=== PATIENT | female | born 2005 | race Caucasian/White ===

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

== ENCOUNTER 2024-04-12 20:02 | Emergency (ER) | payer MEDICAID, SELFPAY ==
[2024-04-12 20:03] VITALS: BP 142/96; PULSE 107; RESP 19; TEMP 36.6; O2SAT 99; BMI 23.1
[2024-04-12 20:48] LABS: Absolute Lymphocyte Count 1.68 X10^3/uL (0.83-4.51); Absolute Neutrophil Count 4.5 X10^3/uL (2.0-7.7); Basophil# 0.03 X10^3/uL; Basophil% 0.4 % (0-1); Eosinophil# 0.04 X10^3/uL; Eosinophils% 0.6 % (0-5); Hematocrit 40.9 % (37-47); Hemoglobin 14.2 g/dL (12.0-15.0); Lymphocyte # 1.68 X10^3/ul (0.83-4.51); Mean Corp Hgb Conc 34.7 g/dL (32-36); Mean Corpuscular Hgb 30.4 pg (27.0-32.0); Mean Corpuscular Volume 87.6 fL (81-99); Mean Platelet Vol. 11.4 fl (6.2-12.0); Monocyte# 0.45 X10^3/uL; Monocyte% 6.7 % (0-10); NRBC Flagged by Analyzer 0 % (0-5); Neutrophil # 4.52 X10^3/uL (2.7-7.7); Neutrophil % 67.2 % (47-70); Platelet Count 203 K/mm3 (150-450); RBC Distribution Width CV 11.8 % (11.6-14.6); RBC Distribution Width SD 37.6 fl (35.1-43.9); Red Blood Count 4.67 M/mm3 (4.2-5.4); White Blood Count 6.7 K/mm3 (4.4-11.0)
[2024-04-12 21:00] VITALS: BP 117/84; PULSE 81; RESP 18
[2024-04-12] MEDS: Activated Charcoal 50 GM/240 ML BOT PO (21:07)
[2024-04-12 21:14] LABS: Internal QC Validated? YES +Cl - CLEAR BKGD; Pregnancy, Serum, hCG Quali. NEGATIVE Negative; Record Kit Lot#, Serum Preg. 869294
[2024-04-12 21:20] LABS: Anion Gap 7 (5-15); BUN 6 mg/dL (7-18); BUN/Creat Ratio 8.2 RATIO (10-20); Calcium,Total 9.1 mg/dL (8.5-10.1); Chloride 109 mmol/L (98-107); Creatinine, Serum 0.74 mg/dL (0.55-1.02); EST Glomerular Filtration Rate 108 mL/min (>60); Est Glom Filt Rate - Afr Amer 130 mL/min (>60); Estimated Creatinine Clearance 87.83 ml/min; Glucose 99 mg/dL (74-106); Potassium 3.3 mmol/L (3.5-5.1); Sodium Level 140 mmol/L (136-145)
[2024-04-12 21:24] LABS: AST(SGOT) 15 U/L (15-37); Alanine Aminotransfer ALT/SGPT 22 U/L (13-56); Albumin, Serum 4.4 g/dL (3.2-5.0); Alkaline Phosphatase 74 U/L (45-117); Bilirubin, Direct 0.17 mg/dL (0.00-0.30); Globulin 3.2 g/dL (2.2-4.2); Protein, Total 7.6 g/dL (6.4-8.2)
[2024-04-12 21:28] LABS: Alcohol, Blood (Medical)-Serum < 3.0 mg/dL; Salicylate < 1.7 mg/dL (2.8-20.0)
[2024-04-12 21:50] LABS: Amphetamine Urine VISTA NEGATIVE (<1000 ng/mL); Barbiturate Urine VISTA NEGATIVE (< 200 ng/mL); Benzodiazepine Urine VISTA NEGATIVE (< 200 ng/mL); Cocaine Urine VISTA NEGATIVE (< 300 ng/mL); Ecstacy Urine VISTA NEGATIVE (< 500 ng/mL); Methadone Urine VISTA NEGATIVE (< 300 ng/mL); PCP Urine VISTA NEGATIVE (< 25 ng/mL); THC Urine VISTA POSITIVE (< 50 ng/mL); Vista UDS pH Range 6
[2024-04-12 22:00] VITALS: BP 103/67; PULSE 77; RESP 27
[2024-04-12 23:00] VITALS: BP 109/73; PULSE 89; RESP 20
--- NOTE | 2024-04-12 23:57 | EX.ED.DYSGE1 ---
HPI History of Present Illness Chief Complaint: Suicidal Narrative Narrative: Patient is a 18-year-old female with past medical history of anxiety, depression, borderline personality disorder, PTSD who presents to the emergency department chief complaint of suicide attempt. Patient states that she attempted to kill her self today and by taking a large amount of Tylenol. States that she does not know exactly how much Tylenol she took she noted that she took about a half a bottle of 500 mg Tylenol tablets. She states that she has not been on her antidepressants or her anxiety medication for some time now. She states that she was doing well earlier today and then she states that this evening she became severely depressed. Patient denies taking any other medications or anything else to hurt herself. Patient states that she has been hospitalized in the past. States that she has tried to commit suicide in the past by overdosing and several other methods. [facility] Medical History Trauma Headache Non-smoker Depression Anxiety Allergy/AdvReac Type Severity Reaction Status Date / Time No Known Allergies Allergy Verified 04/12/24 20:24 Social History Smoking Status: Current every day smoker tobacco type: cigarettes and e-cigarettes ROS ROS ED ROS Narrative Constitutional: Denies any fevers, chills, headaches, lightness, dizziness Eyes: Denies change in vision double vision blurry vision Cardiovascular: Denies chest pain or palpitations Respiratory: Denies coughing wheezing shortness of breath Abdomen: Denies abdominal pain nausea vomit diarrhea : Denies any urinary symptoms Neurological: Denies numbness, weakness, tingling Musculoskeletal: Denies back pain Skin: Denies rashes or lesions EXAM Physical Exam Narrative Exam Narrative: General: Patient lying in bed rest comfortably did not appear to be in acute distress Head: Atraumatic, normocephalic Eyes: PERRL bilateral, EOMI bilateral no conjunctival injection noted Neck: Soft, supple, trachea midline Cardiovascular: Regular rate and rhythm no murmurs gallops rubs noted Respiratory: Clear to auscultation bilaterally no rales rhonchi or wheeze noted Abdomen: No tenderness palpation, soft, nondistended Extremities: +5/5 strength noted in the bilateral lower extremities, no pedal edema on exam, radial pulses +2/4 in the bilateral per extremities Neurological: Patient following commands knew that she was at [facility] the year is 2023 Psychiatric: Patient is calm cooperative Skin: Warm, dry, intact Const Vital Signs: 04/12/24 20:03 04/12/24 21:00 04/12/24 22:00 Temperature 97.8 F Temperature Source Temporal Pulse Rate 107 H 81 77 Respiratory Rate 19 H 18 27 H Blood Pressure 142/96 H 117/84 H 103/67 Blood Pressure Mean 111 94 78 Pulse Ox 99 Oxygen Delivery Method Room Air 04/12/24 23:00 04/13/24 00:00 Temperature Temperature Source Pulse Rate 89 80 Respiratory Rate 20 H 14 Blood Pressure 109/73 108/65 Blood Pressure Mean 84 79 Pulse Ox Oxygen Delivery Method MDM MDM MDM Narrative Medical decision making narrative: Patient is a 18-year-old female who presents to the emergency department with a chief complaint of suicide attempt by overdosing on Tylenol. Patient states that she ingested this medication around 7 PM this evening. Patient did bring the bottle with her and the bottle showed there was 50 coated tablets however they noted that this was about half full so roughly around 25 tablets in total. I did reach out to poison control and they recommended giving activated charcoal as they are now recommending with some medications out to 4 hours which was ordered. They are recommending getting a level now and if it is greater than 300-400 to start N-acetylcysteine if it is mildly elevated or normal obtain a 4-hour level and then reevaluate the patient. The patient's CBC was reviewed and was largely unremarkable no evidence leukocytosis white blood count normal at 6.7, hemoglobin stable 14.2, platelet count normal at 203. Patient sodium normal 140, potassium normal 3.3, creatinine was normal at 0.74. Patient's AST and ALT are 15 and 22 respectively, test was negative. Patient's salicylate level was less than 1.7, drug screen was negative outside of cannabis and alcohol level less than 3. Patient's Tylenol level was noted be 59. Repeat Tylenol level will be obtained at 2300. Patient's repeat Tylenol still pending this will be signed out to oncoming provider to complete medical clearance prior to crisis evaluation for placement. [place] slip was placed on chart. Lab Data Labs: Laboratory Results - last 24 hr 04/12/24 20:37 WBC 6.7 RBC 4.67 Hgb 14.2 Hct 40.9 MCV 87.6 MCH 30.4 MCHC 34.7 RDW Std Deviation 37.6 RDW Coeff of Pita 11.8 Plt Count 203 MPV 11.4 Immature Gran % (Auto) 0.100 Neut % (Auto) 67.2 Lymph % (Auto) 25.0 [place] % (Auto) 6.7 Eos % (Auto) 0.6 Baso % (Auto) 0.4 Absolute Neuts (auto) 4.5 Absolute Lymphs (auto) 1.68 Nucleated RBC % 0 Sodium 140 Potassium 3.3 L Chloride 109 H Carbon Dioxide 25.0 Anion Gap 7 BUN 6 L Creatinine 0.74 Estim Creat Clear Calc 87.83 Est GFR (MDRD) Af Amer 130 Est GFR (MDRD) Non-Af 108 BUN/Creatinine Ratio 8.2 L Glucose 99 Calcium 9.1 Total Bilirubin 0.50 Direct Bilirubin 0.17 AST 15 ALT 22 Alkaline Phosphatase 74 Total Protein 7.6 Albumin 4.4 Globulin 3.2 Serum , Qual NEGATIVE Salicylates < 1.7 L Urine Opiates Screen NEGATIVE Urine Methadone Screen NEGATIVE Acetaminophen 59.0 H* Ur Barbiturates Screen NEGATIVE Ur Phencyclidine Scrn NEGATIVE Ur Amphetamines Screen NEGATIVE MDMA (Ecstasy) Screen NEGATIVE U Benzodiazepines Scrn NEGATIVE Urine Cocaine Screen NEGATIVE U Cannabinoids Screen POSITIVE H Ur Drug Screen Comment Ethyl Alcohol < 3.0 Discharge Plan Triage Chief Complaint: Suicidal Other Complaint: Overdose ED Provider: Khari Saldaña Dx/Rx/DC Orders Primary Care Provider: Rebeca Tenorio Referrals: Rebeca Tenorio, ASSISTED LIVING ADMINISTRATOR-C [Primary Care Provider] - Print Language: Lithuanian
[2024-04-13] VITALS (7 sets, daily range): BP systolic 100–109; BP diastolic 56–84; PULSE 65–93; RESP 14–30; TEMP 36.6; O2SAT 95–99
[2024-04-13 00:42] LABS: Acetaminophen (Tylenol) Level 41.4 ug/mL (10.0-30.0)
--- NOTE | 2024-04-13 02:36 | ED.RN ---
crisis at bedside reviewing safety plan. Patient to be discharged with boyfriend.
== END 2024-04-13 03:16 | disposition home or self-care (01) ==
PROVIDERS: Emergency Provider Emergency Medicine; PCP Nurse Practitioner Family; Visit Provider Emergency Medicine
DX: T39.1X2A Poisoning by 4-Aminophenol derivatives, intentional self-harm, initial encounter (principal); F60.3 Borderline personality disorder; F41.9 Anxiety disorder, unspecified; F32.A Depression, unspecified; F43.10 Post-traumatic stress disorder, unspecified; F17.210 Nicotine dependence, cigarettes, uncomplicated; F17.290 Nicotine dependence, other tobacco product, uncomplicated; Z91.51 Personal history of suicidal behavior; Z79.899 Other long term (current) drug therapy
CPT/HCPCS: 36415; 80048; 80076; 80143; 80179; 80307; 82077; 84703; 85025; 99285

== ENCOUNTER 2024-07-29 13:24 | Day surgery (SDC) | payer MEDICAID, SELFPAY ==
--- NOTE | 2024-07-28 19:55 | HP.PCM_ITS ---
History and Physical Date of Admission: 07/29/24 OBSTETRICS HISTORY AND PHYSICAL NAME: Ivelisse Lyn SERVICE DATE: July 28, 2024 CHIEF COMPLAINT: retained POC HISTORY OF THE PRESENT ILLNESS: This 18 year old G 2 P 1 SAB at about 12 weeks around 07/08. Passed fetus and placenta at home. At follow up visit 3 weeks later she is still spotting. HCG is positive at 99 and there is possible POC on POCUS PROBLEM LIST Active Problems: * No active hospital problems. * Resolved Problems: * No resolved hospital problems. * HISTORY REVIEW PAST MEDICAL HISTORY PAST MEDICAL HISTORY Diagnosis Date ? Anemia during in third trimester 09/30/2022 ? Anxiety ? Cholestasis during in third trimester 11/17/2022 ? Depression ? History of cardiac monitoring 12/08/2023 Patient with event monitor secondary to passing out syncope. Underlying sinus rhythm with excellent heart rate variability. Heart rate ranging 50-158, average heart rate 82. No evidence atrial fibrillation, no ectopic beats appreciated. Multiple arrhythmias noted with no correlation with any monitor abnormalities. This is a normal monitor. ? History of echocardiogram 09/24/2023 EF 59% Normal scan ? Marijuana abuse ? Vapes nicotine containing substance PAST SURGICAL HISTORY PAST SURGICAL HISTORY Procedure Laterality Date ? NEXPLANON REMOVAL Left 03/09/2024 FAMILY HISTORY FAMILY HISTORY Problem Relation Age of Onset ? No Known Problems Mother ? other (AHUS) Father ? Kidney Disease Father atypical hemolytic uremic syndrome ? No Known Problems Sister ? COPD Maternal Grandmother ? Heart Attack Maternal Grandmother ? Stroke Maternal Grandmother ? Prostate Cancer Maternal Grandfather ? Emphysema Maternal Grandfather ? No Known Problems Paternal Grandmother ? No Known Problems Paternal Grandfather ? No Known Problems Half-sister ? No Known Problems Half-sister SOCIAL HISTORY Social History Tobacco Use ? Smoking status: Never ? Smokeless tobacco: Never Vaping Use ? Vaping status: current everyday user ? Substances: Nicotine, THC, CBD, Flavoring ? Devices: Disposable, Pre-filled or refillable cartridge, Pre-filled pod Substance Use Topics ? Alcohol use: Never ? Drug use: Yes Types: Marijuana Comment: Vapes THC and nicotine. OB History Gravida2 Para1 Term1 Preterm0 AB0 Living1 SAB0 IAB0 Ectopic0 Multiple0 Live Births1 ALLERGIES: ALLERGIES ALLERGIES No Known Allergies MEDICATIONS Current Outpatient Medications on File Prior to Visit Medication Sig ? venlafaxine ER (EFFEXOR XR) 75 mg 24 hr capsule Take 1 capsule by mouth once daily. ? ondansetron orally disintegrating (ZOFRAN ODT) 4 mg disintegrating tablet Take 1 tablet by mouth every 8 hours as needed for nausea/vomiting. (Patient not taking: Reported on 07/25/2024) ? aspirin, enteric coated (ECOTRIN LOW STRENGTH) 81 mg EC tablet Take 1 tablet by mouth once daily. (Patient not taking: Reported on 07/25/2024) ? Thyqikoo-Bv-Qaw-Fe-FA tab Take 1 tablet by mouth once daily. (Patient not taking: Reported on 07/25/2024) No current facility-administered medications on file prior to visit. REVIEW OF SYSTEMS GENERAL: No weight loss, malaise or fevers. RESPIRATORY: Negative for cough, hemoptysis, wheezing, COPD, dyspnea or shortness of breath JET AIRCRAFT SERVICER: SEE HPI PSYCH: Negative for sleep disturbance, mood disorder and recent psychosocial stressors. NEURO: No history of headaches, syncope, paralysis, seizures or tremors The remainder of the review of systems is negative. PHYSICAL EXAM AVSS General: WD, WN HEENT: NC/AT, sclera white, pupils equal, no thyromegaly Lungs: normal respiratory effort Heart: RR Abdomen: soft, nontender Uterus: soft, NT Extremities: no edema POCUS: possible clot vs retained POC RH: Positive ASSESSMENT 18 year old SAB PLAN D&C for retained POC SIGNATURE: Penny Dee DATE: July 28, 2024 TIME: 11:49 AM Assessment & Plan Assessment/Plan (1) Incomplete : PLAN: Plan D&C for retained POC
[2024-07-29] VITALS (8 sets, daily range): BP systolic 90–103; BP diastolic 53–76; PULSE 55–78; RESP 14–16; TEMP 36.4–36.8; O2SAT 98–100; BMI 21.1
--- NOTE | 2024-07-29 13:33 | PCM.PRE.AN2 ---
ASA Classification* ASA Classification ASA Classification: 2 Assessment & Plan Anesthesia* Anesthesia Assessment Anesthesia Assessment: Discussed sedation and/or anesthesia options, risks, benefits, and alternatives with patient/parents/legal guardian/POA. Questions invited. The patient/parents/legal guardian/POA seems to understand and agrees to proceed with anesthesia plan. Reviewed the physical assessment, medical history, allergy history and patient home medications list prior to surgery/procedure/anesthetic and documented any changes. Performed airway and anesthesia risk assessments. Anesthesia Type Anesthesia Type: MAC Anesthesia Focused Assessment* Airway Assessment Mouth opens: >3 cm Mallampati Score: II Focused Labs Anesthesia Preop lab: CBC WBC 6.7 K/mm3 (4.4-11.0) 04/12/24 20:37 04/12/24 RBC 4.67 M/mm3 (4.2-5.4) 04/12/24 20:37 04/12/24 Hgb 14.2 g/dL (12.0-15.0) 04/12/24 20:37 04/12/24 Hct 40.9 % (37-47) 04/12/24 20:37 04/12/24 Plt Count 203 K/mm3 (150-450) 04/12/24 20:37 04/12/24 CHEMISTRY Potassium 3.3 mmol/L (3.5-5.1) L 04/12/24 20:37 04/12/24 Sodium 140 mmol/L (136-145) 04/12/24 20:37 04/12/24 BUN 6 mg/dL (7-18) L 04/12/24 20:37 04/12/24 Creatinine 0.74 mg/dL (0.55-1.02) 04/12/24 20:37 04/12/24 Glucose 99 mg/dL (74-106) 04/12/24 20:37 04/12/24 COAG Pre-Assessment Diagnosis/Proposed Procedure Planned Operative Procedure(s): suction D&C Anesthesia History Anesthesia History - certified dental assistant: Anesthesia History - certified dental assistant Hx Hospitalization Any Problems With Anesthesia Cholinesterase deficiency You/Your Family Experience fever (hyperthermia) with Relationship Recent Exposure to Contagious Disease Does patient have nerve stimulator Patient instructed to have device shut off --Does patient have Pacemaker or ICD? When Was Last Pacemaker Check QUESTION #4 FULL TEXT: You/Your Family Experience fever (hyperthermia) with Anesthesia Last Oral Intake Last Oral intake: Last Oral Intake NPO since Meds taken in AM with sips of water? Meds patient instructed to take am of surgery PONV PONV - certified dental assistant: PONV - certified dental assistant Female HX of Motion Sickness HX of N/V After Surgery Non-Smoker Duration of Surgery greater than 60 minutes Number of Risk Factors PONV Score Height & Weight Height & Weight: Anesthesia: Height & Weight Height 5 ft 07/28/24 16:35 Weight: 47.174 kg 07/28/24 16:35 Respiratory Assessment Respiratory Assessment - certified dental assistant: Respiratory Tract Infection Hx - certified dental assistant Hx Respiratory Tract Infection STOP Sleep Apnea STOP Sleep Apnea - certified dental assistant: STOP Sleep Apnea - certified dental assistant Hx Hypertension Hx Sleep Apnea CPAP BIPAP Do you snore loudly (louder than talking or can be heard Do you often feel tired/ fatigued/ sleepy during daytime? Has anyone observed you stop breathing during sleep? STOP Results QUESTION #5 FULL TEXT : Do you snore loudly (louder than talking or can be heard through closed doors)? Tobacco Use History Tobacco Use History - certified dental assistant: Tobacco Use History - certified dental assistant Tobacco Use Smoking Status Current every day smoker 04/12/24 20:21 Hx Tobacco Use Yes 11/27/22 20:35 Years Smoking Packs Smoked per Day Smoking Cessation Date was within the last 15 years Hx Smoking Cessation Date Hx Smoking Cessation Counseling Hematologic Medial History Hematologic Hx - certified dental assistant: Hematologic Medical Hx - jordan man Hx of Blood Transfusion Hx of Transfusion in last 3 Months Date of Last Transfusion (if within last 3 months) Ever experience any problems with transfusion(s)? Specify any problems Hx of Preganancy in last 3 Months Nurse Filling Out Transfusion & Questions: Date: Time: Patient unable to answer at this time (ie. confused, unrespo /Reproduction History /Reproductive History - certified dental assistant: /Reproductive Hx- certified dental assistant Hx Now Gestational Age (in weeks): EDC: Hx Hx Para Hx Section SAB No 04/12/24 20:03 PFSH Medical History Trauma Headache Non-smoker Depression Anxiety Allergy/AdvReac Type Severity Reaction Status Date / Time No Known Allergies Allergy Verified 04/12/24 20:24 Social History Smoking Status: Current every day smoker tobacco type: cigarettes and e-cigarettes Review of Systems (Anesthesia) ROS Narrative System reviewed and no additional complaints, except as documented.
[2024-07-29] MEDS: DOXYCYCLINE 100 MG IV (14:04)
[2024-07-29] MEDS: SODIUM CHLORIDE IV (14:04)
[2024-07-29 14:19] LABS: Hematocrit 36.8 % (37-47); Hemoglobin 12.9 g/dL (12.0-15.0); Mean Corp Hgb Conc 35.1 g/dL (32-36); Mean Corpuscular Hgb 31.6 pg (27.0-32.0); Mean Corpuscular Volume 90.2 fL (81-99); Mean Platelet Vol. 11.8 fl (6.2-12.0); Platelet Count 188 K/mm3 (150-450); RBC Distribution Width CV 12.4 % (11.6-14.6); RBC Distribution Width SD 41.1 fl (35.1-43.9); Red Blood Count 4.08 M/mm3 (4.2-5.4); White Blood Count 8.6 K/mm3 (4.4-11.0)
--- NOTE | 2024-07-29 14:58 | PCM.PN.BLA ---
Progress Note Patient seen in pre op. Assessment & Plan Assessment/Plan (1) Retained products of conception: PLAN: Discussed r/b/a suction D&C. Patient desires to proceed. No changes noted to H&P.
--- NOTE | 2024-07-29 15:30 | POC_PTH ---
PATIENT: PAULINA RAMSEY [place] [facility] [place][id number] AGE/SX: 18/F ROOM: RE07/29/[address]: Dr. Pamela Barone DO : 2005 BED: DIS: 07/29/2024 SPEC #: [id number] RECD: 08/01/24 09:14 STATUS: ANAMARIA APURVA #: [id number] ABHIJIT: 07/29/24 15:[address]: Pamela Barone DEPT: SURGICAL PATHOLOGY RECD BY: Hernán Ferreira ENTERED: 08/01/24 09:14 SP TYPE: PROD CONC OTHR DR: Rebeca Tenorio, DOOR CLOSER MECHANIC-C Tissues: Product of conception, NOS Procedures: Surgery Specimen Level IV HEADER OPERATION: Dilation and curettage, suction PRE-OP DIAGNOSIS: Incomplete TISSUE SUBMITTED: Retained products of conception MICROSCOPIC DIAGNOSIS Uterine contents, suction D&C: * Necrotic decidua and chorionic villi consistent with products of conception. * Fragments of endometrium/lower uterine segment. MICROSCOPIC DESCRIPTION Slides are reviewed. GROSS DESCRIPTION The specimen is received in a suction device, in one container labeled with the patient's name and designated Retained products of conception. The specimen consists of multiple fragments of grajeda-lux soft tissue measuring 5 x 3.5 x 1cm in aggregate. No villi or parts are identified. TE4 mr 08/01/2024 CPT: 63390
[2024-07-29] MEDS: Lidocaine 1% /Epi 1:100 (20ml) 20 ML Vial (15:37)
--- NOTE | 2024-07-29 15:54 | PCM.POST.ANE ---
Anesthesia: Postop Eval I Current Vital Signs Temperature: 97.6 F Pulse Rate: 62 Blood Pressure: 95/59 Respiratory Rate: 16 Pulse Ox: 98 Oxygen Delivery Method: Room Air Assessment Airway patent: Yes Spontaneous unlabored respirations: Yes Mental status: Asleep nausea: No Vomiting: No Anesthesia Complication: No Fluid Hydration Crystalloid volume administer (ml): 10 Total IV fluid infused: 10 Progress Note Anesthesia document: Postop Eval 1 completed: Yes
--- NOTE | 2024-07-29 15:56 | PCM.DC ---
Discharge Instructions Diet Discharge Diet: No restrictions DC O2, CPAP, BIPAP needs Home O2 Discharge instructions: No Dressing / Incision Discharge Activity: May Drive (once you are more than 24 hours out from surgery) and May Shower (once you are more than 24 hours out from surgery) May resume sexual activity in: 2 weeks (Nothing in the vagina and no soaking water while you are having vaginal bleeding. ) Weight Bearing Status: Weight bearing as tolerated Lifting Restrictions: none Dressing / Incision Call your doctor if you observe: Fever of 101 or Higher, Coldness, Increased Pain, Numbness or Tingling, Inability to urinate, Inability to have a bowel movement, Using more than 1 pad per hour, Shortness of breath, Dizziness, Swelling in the ankles, Chest pain, Increased palpitations (irregular heartbeat), Calf discomfort and Uncontrolled pain Cleanse incision/area with: Soap & Water Follow Up Care Please Follow Up With: Pamela Barone DO When: 1-2 weeks for follow up Test Results: Test results from this visit will be discussed in further detail at your follow-up appointment, if applicable. Discharge Plan Admission Primary Reason for Your Visit: surgery Attending Provider: Pamela Barone Primary Care Provider: Rebeca Tenorio Instructions Patient Instructions: Dilation and Curettage Print Language: Hungarian Discharge Orders/Prescriptions Prescriptions: Continued venlafaxine 75 mg capsule,extended release 24hr 75 mg PO DAILY Referrals / Follow Up: Rebeca Tenorio, ASSISTANT SUPERINTENDENT FOR [employer]-C [Primary Care Provider] - Disposition Disposition (needs filled in before D/C Order can be placed): Home, Self Care
--- NOTE | 2024-07-29 15:57 | OP.PCM_ITS ---
Problems Associated Problem List Diagnoses (1) Retained products of conception: Operative Report (Standard) Operative Information Date of Procedure: 07/29/24 Pre-Operative Diagnosis: Retained products of conception Post-Operative Diagnosis: As above Surgery/Procedure Performed: Suction D&C neurological physiotherapist: No Type of Anesthesia: MAC RN Documented Start/Stop Times: Operation Date: 07/29/24 15:30 Case Time Into Pre-Op 07/29/24 13:29 Anesthesia Start 07/29/24 15:13 Into Room 07/29/24 15:13 Procedure Start 07/29/24 15:31 Procedure End 07/29/24 15:45 Anesthesia End 07/29/24 15:49 Out of Room 07/29/24 15:49 Into Recovery 07/29/24 15:52 Procedure Start Time: 15:31 Procedure Stop Time: 15:45 Select all DRAINS/GRAFTS/IMPLANTS that apply: None Special Medications: None Estimated Blood Loss: 50 mL Fluids Replaced: See anesthesia record Specimen collected: Yes Description of specimen(s) removed: Retained products of conception Description of surgery: The patient was taken to the operating room where MAC anesthesia was found to be adequate. She was prepped and draped in the dorsal lithotomy position using yellowfin stirrups. A weighted speculum was placed in the vagina to expose the cervix. The anterior lip of the cervix was grasped with a single-tooth tenaculum. The cervix was serially dilated to accommodate a size 8 curved suction curettage. Several passes were made using the size 8 suction curettage to remove retained products of conception, until no further tissue was noted. A sharp curettage was performed along all 4 uterine mendoza for a good uterine cry. A transabdominal ultrasound was performed confirming no further retained products of conception. Bleeding was scant. The single tooth tenaculum and weighted speculum were removed from the vagina. Sponge counts were correct. A vaginal sweep was performed. The patient was taken to the recovery in stable condition. Surgical Findings: Enlarged 8 week sized uterus Complications Complications: No Admit VTE Documentation VTE Present on Admission: No VTE Mechan Device Prophylaxis: SCD's
--- NOTE | 2024-07-29 16:02 | POSTOPAN2_ITS ---
Anesthesia Postop Eval I Sum Postop Eval Completion status Anesthesia document: Postop Eval 1 completed: Yes Anesthesia Postop Eval I Summary Anesthesia Postop Eval I Summary: Anesthesia Postop Eval I: Assessment Summary Airway patent Yes 07/29/24 15:54 VICE PRESIDENT PLANNING.[email or web address] Spontaneous unlabored Yes 07/29/24 15:54 VICE PRESIDENT PLANNING.CHANDNI respirations Mental status Asleep 07/29/24 15:54 VICE PRESIDENT PLANNING.CHANDNI nausea No 07/29/24 15:54 VICE PRESIDENT PLANNING.CHANDNI Vomiting No 07/29/24 15:54 VICE PRESIDENT PLANNING.CHANDNI Anesthesia Postop Eval I: Fluid Summary Crystalloid volume administer 10 07/29/24 15:54 VICE PRESIDENT PLANNING.CHANDNI (ml) Colloids volume administered ( ml) Blood Product volume administered (ml) Total IV fluid infused 10 07/29/24 15:54 VICE PRESIDENT PLANNING.CHANDNI Anesthesia Postop Eval I: Summary Notes Anesthesia Complication No 07/29/24 15:54 MIYA Anesthesia Complication Comment: Post-operative progress note Anesthesia: Postop Eval II Evaluation Mental status: Awake Pain Level: 0 nausea: No Vomiting: No
--- NOTE | 2024-07-29 16:02 | PCM.POSTANE2 ---
Anesthesia Postop Eval I Sum Postop Eval Completion status Anesthesia document: Postop Eval 1 completed: Yes Anesthesia Postop Eval I Summary Anesthesia Postop Eval I Summary: Anesthesia Postop Eval I: Assessment Summary Airway patent Yes 07/29/24 15:54 PRODUCT DESIGNER.[email or web address] Spontaneous unlabored Yes 07/29/24 15:54 PRODUCT [email or web address].[email or web address] respirations Mental status Asleep 07/29/24 15:54 PRODUCT [email or web address].[email or web address] nausea No 07/29/24 15:54 PRODUCT DESIGNER.CHANDNI Vomiting No 07/29/24 15:54 PRODUCT DESIGNER.[email or web address] Anesthesia Postop Eval I: Fluid Summary Crystalloid volume administer 10 07/29/24 15:54 PRODUCT [email or web address].[email or web address] (ml) Colloids volume administered ( ml) Blood Product volume administered (ml) Total IV fluid infused 10 07/29/24 15:54 PRODUCT [email or web address].[email or web address] Anesthesia Postop Eval I: Summary Notes Anesthesia Complication No 07/29/24 15:54 MIYA Anesthesia Complication Comment: Post-operative progress note Anesthesia: Postop Eval II Evaluation Mental status: Awake Pain Level: 0 nausea: No Vomiting: No
--- NOTE | 2024-07-29 17:09 | SUR.PHASEII ---
pt screaming and crying. States she is angry because she did not receive an iud during her procedure today. This Nurse spoke to Dr Barone on the phone regarding issue. Relayed info to patient that Dr Barone was unaware that patient wanted an IUD, it was not on the consent and patient did not say anything about it preop. IUD can be placed in the office per Dr Barone. Patient has calmed down slightly. States she is very angry that the IUD did not happen. Mother in room with patient and attempting to calm her down. pt apologized for her behaviour and states she is just very frustrated.
== END 2024-07-29 17:22 | disposition home or self-care (01) ==
PROVIDERS: PCP Nurse Practitioner Family; Referring Provider Obstetrics & Gynecology; Visit Provider Obstetrics & Gynecology
PROC: (CPT 59812; principal; 2024-07-29 15:15)
DX: O03.4 Incomplete spontaneous abortion without complication (principal); Z79.82 Long term (current) use of aspirin; F17.210 Nicotine dependence, cigarettes, uncomplicated; F17.290 Nicotine dependence, other tobacco product, uncomplicated
CPT/HCPCS: 59812; 01965; 85027; 88305; A4216; J2405

== ENCOUNTER 2024-09-27 12:15 | Emergency (ER) | payer MEDICAID, SELFPAY ==
[2024-09-27 12:18] VITALS: BP 112/85; PULSE 63; RESP 20; TEMP 36.2; O2SAT 100; BMI 20.3
[2024-09-27 12:58] LABS: Absolute Lymphocyte Count 2.86 X10^3/uL (0.83-4.51); Absolute Neutrophil Count 5.3 X10^3/uL (2.0-7.7); Basophil# 0.03 X10^3/uL; Basophil% 0.3 % (0-1); Hematocrit 40.1 % (37-47); Hemoglobin 13.7 g/dL (12.0-15.0); Lymphocyte # 2.86 X10^3/ul (0.83-4.51); Lymphocyte % 32.9 % (19-41); Mean Corp Hgb Conc 34.2 g/dL (32-36); Mean Corpuscular Hgb 31.3 pg (27.0-32.0); Mean Corpuscular Volume 91.6 fL (81-99); Mean Platelet Vol. 11.9 fl (6.2-12.0); Monocyte# 0.52 X10^3/uL; NRBC Flagged by Analyzer 0 % (0-5); Neutrophil # 5.27 X10^3/uL (2.7-7.7); Neutrophil % 60.6 % (47-70); Platelet Count 215 K/mm3 (150-450); RBC Distribution Width CV 11.7 % (11.6-14.6); RBC Distribution Width SD 39.6 fl (35.1-43.9); Red Blood Count 4.38 M/mm3 (4.2-5.4); White Blood Count 8.7 K/mm3 (4.4-11.0)
[2024-09-27 13:16] LABS: Internal QC Validated? YES +Cl - CLEAR BKGD; Pregnancy, Serum, hCG Quali. NEGATIVE Negative
--- NOTE | 2024-09-27 13:16 | EX.ED.DYSGE1 ---
HPI History of Present Illness Chief Complaint: Abd Pain Detail of Chief Complaint: Left lower quadrant inguinal pain with radiation to the anterior posterior Informant: patient Onset/Context/Timing Onset: Days Context: Sudden Onset Timing: Continuous Quality: Pain Location: Previously noted Current Severity: Mild Maximum Severity: Moderate Worsened by: Movement and palpation Relieved by: Nothing Associated Symptoms Associated Symptoms: Vaginal bleeding since D&C June 2024 Narrative Narrative: Patient is a 18-year-old G2, P1 female who presents with left lower quadrant/left inguinal pain that radiates to the left anterior thigh and left posterior thigh. The vaginal bleeding has been present since D&C in June. Patient denies fever, chills night sweats. She denies dysuria, frequency, urgency or hematuria. She denies vaginal discharge. She has no history of endometriosis or ovarian cyst. She is not on any form of control. There is no history of trauma. She has not noted any lesions or rash. She has not had pain like this before. She denies bowel bladder dysfunction. She denies radicular pain. She denies foot drop. [facility] Medical History Wears glasses Marijuana use Low iron Anemia Restless legs Back pain Syncope Smoker Shortness of breath on exertion History of echocardiogram Trauma Headache Depression Anxiety Home Medications ?Medication ?Instructions ?Recorded ?Last Taken ?Type venlafaxine 75 mg capsule,extended 75 mg PO DAILY 07/29/24 07/28/24 History release 24 hr doxycycline monohydrate 100 mg 100 mg PO BID #10 CAPSULES 09/27/24 Unknown Rx capsule naproxen 500 mg tablet 500 mg PO BID #14 tabs 09/27/24 Unknown Rx Allergy/AdvReac Type Severity Reaction Status Date / Time No Known Allergies Allergy Verified 09/27/24 12:18 Social History Smoking Status: Current every day smoker tobacco type: cigarettes and e-cigarettes ROS ROS ED Constitutional Constitutional ED: Denies chills, fever(s), subjective or sweats Cardiovascular Cardiovascular: Denies chest pain or palpitations Respiratory/Chest Respiratory/Chest: Denies cough, dyspnea or dyspnea on exertion Gastrointestinal Gastrointestinal: Reports abdominal pain; Denies constipation, diarrhea, melena, nausea or vomiting Genitourinary Genitourinary ED: Reports LMP (females 10-50) Details: Comment: (Documented HPI narrative); Denies dysuria, hematuria or urinary frequency Musculoskeletal Musculoskeletal: Denies arthralgias, back pain, myalgias or neck pain Integumentary Denies rash Neurologic Neurologic: Denies paresthesias or weakness Hematologic/Lymphatic Hematologic/Lymphatic: Reports systems reviewed and no addt'l complaints, except as documented EXAM Physical Exam Const Vital Signs: 09/27/24 12:18 Temperature 97.1 F L Temperature Source Temporal Pulse Rate 63 Respiratory Rate 20 H Blood Pressure 112/85 H Blood Pressure Mean 94 Pulse Ox 100 Oxygen Delivery Method Room Air Positive well nourished and well developed Constitutional Narrative: Patient is thin. She appears pale. She appears slightly uncomfortable. General Appearance ED: well developed; Negative for pallor HEENT Reports moist mucous membranes HEENT Narrative: Head is atraumatic normocephalic. Ears normal. Nares patent. Eyes PERRL and EOMs intact bilaterally General Eye ED: Negative for scleral icterus Neck no lymphadenopathy, supple and no JVD Resp normal respiratory effort and clear to auscultation bilaterally Cardio regular rate, regular rhythm, S1 normal heart sound, S2 normal heart sound and no murmurs GI non-distended and no masses; Negative for hepatosplenomegaly Inspection: Negative for abdominal distention Auscultation: hypoactive bowel sounds Palpation: soft and tender LLQ; Negative for guarding, splenomegaly, mass or rebound tenderness present Narrative: External genitalia normal. Vaginal mucosa normal. Cervix is normal. There is no discharge or active bleeding at this time. Patient has no discomfort pressure against the bladder. There is no cervical motion tenderness. She has some mild discomfort right and left adnexa. Ovaries were palpated and normal. Uterus may be slightly enlarged. There is evidence of left inguinal lymphadenopathy. She has significant tenderness of the more superior lymph nodes. She did report improvement with Toradol. Will discharge with prescription for NSAID and antibiotics. Back/Spine no CVA tenderness Extremity normal to inspection Neuro oriented x3 and CN's II-XII intact bilaterally Sensorium / Orientation: alert Psych mental status grossly normal Skin no rashes or lesions noted, no wounds and skin turgor normal General Skin Exam: elasticity normal; Negative for jaundice or pallor MDM MDM MDM Narrative Medical decision making narrative: Differential diagnosis would include ovarian cyst, ovarian torsion, ectopic , pelvic pain unknown etiology, endometriosis, urinary tract infection. CBC and test were obtained. CBC is normal. test is negative. With patient and palpable left inguinal nodes that are tender we will treat with doxycycline and NSAIDs. Lab Data Attestation: I reviewed the patient's lab results. Lab results narrative: CBC normal. test negative. Labs: Laboratory Results - last 24 hr 09/27/24 12:40 WBC 8.7 RBC 4.38 Hgb 13.7 Hct 40.1 MCV 91.6 MCH 31.3 MCHC 34.2 RDW Std Deviation 39.6 RDW Coeff of Pita 11.7 Plt Count 215 MPV 11.9 Immature Gran % (Auto) 0.200 Neut % (Auto) 60.6 Lymph % (Auto) 32.9 [place] % (Auto) 6.0 Eos % (Auto) 0.0 Baso % (Auto) 0.3 Absolute Neuts (auto) 5.3 Absolute Lymphs (auto) 2.86 Nucleated RBC % 0 Serum , Qual NEGATIVE Treatment and Re-Evaluation :: Patient and mother were informed of laboratory results and suspected diagnosis in light of pelvic exam. Plan is to discharge to home Discharge Plan Triage Chief Complaint: Abd Pain ED Provider: Morteza Turner Dx/Rx/DC Orders Clinical Impression: Superficial inguinal lymphadenopathy, Abnormal uterine and vaginal bleeding, unspecified Instructions: Lymphadenopathy Prescriptions: New doxycycline monohydrate 100 mg capsule 100 mg PO BID Qty: 10 0RF naproxen 500 mg tablet 500 mg PO BID Qty: 14 0RF No Action venlafaxine 75 mg capsule,extended release 24hr 75 mg PO DAILY Primary Care Provider: Rebeca Tenorio Referrals: Rebeca Tenorio, [employer] [Primary Care Provider] - 3-5 Days if not improving Print Language: Nepali Disposition Disposition: Home, Self Care
[2024-09-27 13:57] VITALS: BP 109/69; PULSE 65; RESP 16; TEMP 36.7; O2SAT 100
== END 2024-09-27 13:58 | disposition home or self-care (01) ==
PROVIDERS: Emergency Provider Emergency Medicine; PCP Nurse Practitioner Family; Visit Provider Emergency Medicine
DX: R59.0 Localized enlarged lymph nodes (principal); N93.9 Abnormal uterine and vaginal bleeding, unspecified; R10.32 Left lower quadrant pain; F41.9 Anxiety disorder, unspecified; F32.A Depression, unspecified; G25.81 Restless legs syndrome; F17.210 Nicotine dependence, cigarettes, uncomplicated; F17.290 Nicotine dependence, other tobacco product, uncomplicated; Z79.899 Other long term (current) drug therapy
CPT/HCPCS: 84703; 85025; 99284; A4216

== ENCOUNTER 2024-11-28 09:51 | Emergency (ER) | payer MEDICAID, SELFPAY ==
[2024-11-28 09:52] VITALS: BP 101/74; PULSE 73; RESP 18; TEMP 36.6; O2SAT 99; BMI 21.7
[2024-11-28] MEDS: 0.9% Normal Saline (1000mL) 1,000 ML 999 ML IV (10:29)
[2024-11-28 10:49] LABS: Hematocrit 41.8 % (37-47); Hemoglobin 13.9 g/dL (12.0-15.0); Immature Granulocytes Count 0.070 X10^3/uL (0.0-0.0); Mean Corp Hgb Conc 33.3 g/dL (32-36); Mean Corpuscular Volume 92.3 fL (81-99); Mean Platelet Vol. 11.7 fl (6.2-12.0); NRBC Flagged by Analyzer 0 % (0-5); Platelet Count 171 K/mm3 (150-450); RBC Distribution Width CV 12.9 % (11.6-14.6); RBC Distribution Width SD 43.6 fl (35.1-43.9); Red Blood Count 4.53 M/mm3 (4.2-5.4); White Blood Count 11.0 K/mm3 (4.4-11.0)
[2024-11-28 11:06] LABS: Color, Urine Yellow (Yellow); Glucose, Dipstick Normal (Normal); Ketone-Dipstick Negative (Negative); Leukocyte Esterase-Dipstick Negative /ul (Negative); Nitrite-Dipstick Negative (Negative); Occult Blood-Urine 10 /ul (Negative); Protein-Dipstick 15 mg/dl (Negative); Specific Gravity, Urine 1.010 (1.002-1.030); Urine Bilirubin Dipstick Negative (Negative)
[2024-11-28 11:32] LABS: Internal QC Validated? YES +Cl - CLEAR BKGD; Pregnancy, Serum, hCG Quali. NEGATIVE Negative; Record Kit Lot#, Serum Preg. 0000947241
[2024-11-28 11:40] LABS: AST(SGOT) 20 U/L (<=31); Alanine Aminotransfer ALT/SGPT 14 U/L (<=34); Albumin, Serum 4.3 g/dL (3.5-5.0); Alkaline Phosphatase 80 U/L (35-104); Anion Gap 9 (5-15); BUN 7 mg/dL (4-19); BUN/Creat Ratio 11.4 RATIO (10-20); Calcium,Total 8.7 mg/dL (7.6-11.0); Carbon Dioxide 24.5 mmol/L (21.0-32.0); Chloride 106 mmol/L (98-108); Estimated Creatinine Clearance 99.17 ml/min (50-250); Globulin 2.5 g/dL (2.2-4.2); Glucose 105 mg/dL (70-99); Lipase 184 U/L (13-75); Potassium 4.1 mmol/L (3.3-5.1)
[2024-11-28 11:51] VITALS: BP 100/77; PULSE 68; RESP 14; O2SAT 99
[2024-11-28] MEDS: Ketorolac 30 MG/ML Syringe IV (12:56)
[2024-11-28 13:00] VITALS: BP 134/78; PULSE 78; RESP 16; O2SAT 98
[2024-11-28 14:01] VITALS: BP 134/78; PULSE 78; RESP 18; TEMP 36.6; O2SAT 99
== END 2024-11-28 14:02 | disposition home or self-care (01) ==
PROVIDERS: Emergency Provider Surgery; PCP Nurse Practitioner Family; Visit Provider Surgery
DX: R10.32 Left lower quadrant pain (principal); R10.2 Pelvic and perineal pain; R14.0 Abdominal distension (gaseous); R11.0 Nausea; F32.A Depression, unspecified; F41.9 Anxiety disorder, unspecified; Z79.3 Long term (current) use of hormonal contraceptives; Z79.899 Other long term (current) drug therapy; F17.290 Nicotine dependence, other tobacco product, uncomplicated
CPT/HCPCS: 74177; 80053; 81002; 83690; 84703; 85025; 96361; 96374; 96375; 99283; Q9967; A4216; J2405

== ENCOUNTER 2025-03-01 08:00 | Outpatient (RCR) | payer MEDICAID, SELFPAY ==
--- NOTE | 2025-03-01 09:10 | BH.COMM ---
Communication Note Communication with Client Communication Note: Met with pt to complete paperwork, update any changes to pre-admission screening, and complete risk assessment. Consulted with Dr. 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
--- NOTE | 2025-03-01 10:15 | BH.SGPN.GN ---
Behaviors/Verbalizations/Mental Status: [] Client alert and oriented, casually dressed and groomed. Eye contact fair. Motor activity appropriate. Speech within normal limits. Affect congruent, mood anxious. Thoughts linear, logical, no signs of hallucinations or delusions. Client Response/Progress/Benefit: [] Pt engaged in session AEB client listening attentively to peers and providing input. Attentive and contributed to discussion as group worked on defining self-forgiveness and identifying mental health benefit. Identified benefits as: reduce guilt/shame, increase self-confidence, decrease negative self-talk, healthier relationships, ect. ?Worked in small groups to identify factors that can make self-forgiveness difficult. Pt stated having a hard time forgiving self for not being a better mom. Pt identified a personal barrier to self-forgiveness. Benefited from increased education on self-forgiveness, benefits, and what effects it. Pt will continue IOP tx to improve distress tolerance, improve confidence, and prevent decompensation.
--- NOTE | 2025-03-01 11:15 | BH.SGPN.GN ---
Behaviors/Verbalizations/Mental Status: [] Client alert and oriented, casually dressed and groomed. Eye contact good. Motor activity appropriate. Speech within normal limits. Affect congruent, mood content, anxious. Thoughts linear, logical, no signs of hallucinations or delusions. Client Response/Progress/Benefit: [] Pt engaged in session AEB client listening attentively to peers and providing input. Attentive during psychoeducation on the 4 R?s of Self-Forgiveness (Responsibility, Remorse, Protestant, Renewal). Contributed to discussion as group worked on identifying strategies for improving ability to practice self-forgiveness. Reports wanting to practice thought challenging and journaling. Engaged in self-forgiveness activity and benefited from increased education on self-forgiveness building skills. Pt will continue IOP tx to improve mood stability, increase self-compassion, and prevent decompensation. Narrative Note: []
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
--- NOTE | 2025-03-03 07:46 | BH.DR.ITP ---
Initial Treatment Plan Patient Information Visit Information: ADMISSION DATE: EXPECTED LOS: 4-6 weeks Problems/Symptoms Problem #1:: OCD Symptom:: intrusion, compulsions in the form of mantras, anxiety Problem #2:: depression Symptom:: Suicidality, low mood, poor motivation
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
[2025-03-03 10:14] VITALS: BP 135/89; PULSE 96
--- NOTE | 2025-03-03 10:15 | BH.SGPN.GN ---
Behaviors/Verbalizations/Mental Status: []Pt alert and oriented, neatly dressed and groomed. Eye contact good. Motor activity appropriate. Speech within normal limits. Affect constricted, mood depressed. Thoughts linear, logical, no signs of hallucinations or delusions. Client Response/Progress/Benefit: [] Pt engaged and actively participating in discussion, taking notes. Pt attentive during psychoeducation about the window of tolerance and noted personal connections. Group identified what contributes to low distress tolerance. The group gained awareness of the three zones of tolerance and pt was able to identify what they look like in each zone. Pt shared personal signs in hyperarousal zone are: racing heart, anger, lashing out, and wanting to leave. Pt shared signs in the window of tolerance, they feel calm, curious, and enjoying hobbies again. Pt appeared to benefit from psychoeducation on distress tolerance and practicing self-reflection. Pt will continue IOP tx to prevent decompensation, gain healthy coping skills, and improve mood stability. Narrative Note: []
--- NOTE | 2025-03-03 11:15 | BH.SGPN.GN ---
Behaviors/Verbalizations/Mental Status: []Pt alert and oriented, casually dressed and groomed. Eye contact good. Motor activity appropriate. Speech within normal limits. Affect congruent, mood depressed. Thoughts linear, logical, no signs of hallucinations or delusions. Client Response/Progress/Benefit: [] Pt responded well to session AEB taking notes and contributing to discussion throughout. Pt engaged as group continued discussion on distress tolerance and the mental health benefits of widening their overall Window of Tolerance. Pt engaged with group in experiential activity provided input on connections between variables in the activity and distress tolerance. Worked within small groups to identify strategies to increase distress tolerance and reduce hyper-arousal and hypo-arousal states. Identified wanting to begin implementing distress tolerance skills of: stretching, deep breathing, and talking to supports. Pt appeared to benefit from gaining insight and learning strategies to increase distress tolerance. Pt will continue IOP tx to promote use of healthy coping skills, improve mood stability, and prevent decompensation. Narrative Note: []
--- NOTE | 2025-03-06 09:00 | BH.SGPN.GN ---
Behaviors/Verbalizations/Mental Status: [] Pt alert and oriented, Casually dressed and groomed. Eye contact fair. Motor activity appropriate. Speech within normal limits. Affect congruent, mood anxious. Thoughts linear, logical, no signs of hallucinations or delusions. Reviewed pt?s symptom tracker, 1/5 with 5 being severe for risk for suicidal ideation, indicates a 0/5 for plan, and intent to kill self. Pt does not appear to be imminent risk to harm self.03/06/25. Client Response/Progress/Benefit: []Pt was an active participant in group discussions. Attentive. Per patients daily symptom tracker, pt indicates a 2/5 for depression and a 3/5 for anxiety, with 5 being severe. Pt shared her mental positive as gradually reducing the use of weed as a coping mechanism. Pt stated that she was feeling like a zombie due to smoking all of the time, and knows that weed is not good for some of her chronic health issues. Pt also reported trying to use other coping mechanisms to deal with stress instead of weed. Pt's stressor was dealing with health issues while trying to be attentive to her two year old daughter, stating that she often felt guilty for having to rest, instead of playing, and pushing her self to the point of having to stay in bed for a few days. She reported that she was overall psychically feeling unwell due to chronic illness. Pt was supportive and attentive to others in the group. Pt seemed to benefit from support from peers. Will continue IOP tx to promote healthy coping mechanisms, reduce negative thinking patterns, and increase self-confidence.
--- NOTE | 2025-03-06 10:15 | BH.SGPN.GN ---
Behaviors/Verbalizations/Mental Status: [] Eye contact is good. Motor activity is appropriate. Appearance is casual. Speech is Appropriate. Mood is content. Affect is congruent. Thoughts are linear and logical. No evidence of psychosis. Client Response/Progress/Benefit: [] Pt engaged in session AEB listening attentively to others and providing input throughout. Pt engaged in activity, able to connect how it can be uncomfortable and difficult to practice acceptance when situations are out of one?s own control. Identified what they are struggling to accept in personal life. Worked with peer group to define acceptance and identify the benefits that acceptance can bring. Benefits included; reduce anxiety, reduced stress, helps one to focus on situations we can change, and decreased negative self-talk. Seemed to benefit from increased awareness of the meaning as well as the importance of acceptance. Will continue in IOP to improve emotion regulation, challenge distortions, and prevent decompensation. Narrative Note: []
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
--- NOTE | 2025-03-06 14:12 | BH.MTP ---
Master Treatment Plan Patient Information Program Physician:: Dr. Javi Day Primary Therapist:: BUCK Correa Psychiatric Diagnoses Psychiatric Diagnoses:: OCD; Major Depressive Disorder Diagnosis Code(s):: F42.0 Estimated LOS Estimated LOS (in weeks):: 8 Problem/Goal #1 Problem/Goal #1 Stated Goal:: Pt will reduce overall frequency and intensity of anxiety and OCD symptoms so that daily functioning is less impaired. Description of Barriers: Pt has a significant trauma history that continues to impact pt's core beliefs and behaviors. Pt is experiencing work, familial, and social stressors due to her symptoms. Pt is unable to manage her intrusive thoughts and feels like they are racing constantly. Pt reported she becomes so overwhelmed by sx she cant leave the house, maintain employment, or do more the ?the bare minimum? when caregiving. Functional Impact: Pt is a 19 year old female who has a history of depression, anxiety, BPD and OCD who was referred to [facility] tx by her boyfriend who found the program online. At the time of her referral pt reports she was experiencing severe depressive sx which she described as ?bed rot?. Pt noted that she was not able to get off the couch, shower, eat, or do more than the bare minimum due to loss of energy and motivation. Does describe this as somewhat better since beginning IOP tx as it gives her a reason to complete personal hygiene tasks. Noted that she was still caring for her 2 year old daughter at that time but felt guilty for only doing the bare minimum in terms of caregiving tasks. Explained that she had her daughter at 17 and has struggle to adjust to motherhood. Worsening sx of depression mood instability, and OCD since giving . Was previously on venlafaxine and olanzapine but ran out of medication and has not taken for the last 2 weeks. Goal Relevant Strengths/Supports: Pt has support from her boyfriend and mother. Pt is engaged and motivated. Objectives Objective #1: Stated Objective: Pt will improve ability to cope with OCD symptoms and reduce avoidance by setting 1-2 small exposure goals each week and reducing engagement in compulsions each week. Interventions: Through group and individual therapy, pt will gain skills on distress tolerance and sitting with the uncomfortable. Therapist will help pt set small, realistic exposure goals each week. Therapist will have pt practice these goals both in session and at home. Therapist will provide psychoeducation on OCD including external triggers, internal triggers, rituals, avoidance, and feared consequences. Therapist will also provide psychoeducation on intrusive thinking and reducing safety behaviors. Discharge Criteria: Pt will have accomplished this goal when pt can report accomplishing at least 1 exposure goal per week and can report reduced compulsions both at IOP and at home. Target Date: 04/14/25 Review Date: 03/22/25 Objective #2: Stated Objective: Pt will identify 2-3 anxiety and OCD triggers and be able to use at least 1 distress tolerance skill to reduce DSM-5 scores. Interventions: Through group and individual sessions, pt will gain awareness of anxiety and OCD triggers and learn numerous techniques to manage anxiety and OCD symptoms. Therapist will teach mindfulness and other calming techniques to manage symptoms and increase distress tolerance skills. Therapist will also help pt utilize mindfulness skills to sit with the uncomfortable to increase confidence in managing triggers. Discharge Criteria: Pt will have met this goal when pt can identify at least 2 triggers and report using at least one distress tolerance skill. This goal will also be met when pt's DSM-5 scores for anxiety and OCD are decreased. Target Date: 04/14/25 Review Date: 03/22/25 Problem/Goal #2 Problem/Goal #2 Stated Goal:: Pt will decrease depressive symptoms, hopelessness, guilt, and negative self-talk. Description of Barriers: Pt has a significant trauma history that continues to impact pt's core beliefs and behaviors. Pt is experiencing work, familial, and social stressors due to her symptoms. Pt is unable to manage her intrusive thoughts and feels like they are racing constantly. Pt reported she becomes so overwhelmed by sx she cant leave the house, maintain employment, or do more the ?the bare minimum? when caregiving. Functional Impact: Pt is a 19 year old female who has a history of depression, anxiety, BPD and OCD who was referred to [facility] tx by her boyfriend who found the program online. At the time of her referral pt reports she was experiencing severe depressive sx which she described as ?bed rot?. Pt noted that she was not able to get off the couch, shower, eat, or do more than the bare minimum due to loss of energy and motivation. Does describe this as somewhat better since beginning IOP tx as it gives her a reason to complete personal hygiene tasks. Noted that she was still caring for her 2 year old daughter at that time but felt guilty for only doing the bare minimum in terms of caregiving tasks. Explained that she had her daughter at 17 and has struggle to adjust to motherhood. Worsening sx of depression mood instability, and OCD since giving . Was previously on venlafaxine and olanzapine but ran out of medication and has not taken for the last 2 weeks. Goal Relevant Strengths/Supports: Pt has support from her boyfriend and mother. Pt is engaged and motivated. Objectives Objective #1: Stated Objective: Pt will learn and utilize 2-3 healthy coping strategies to better manage depressive symptoms as shown by a decrease of DMS-5 symptoms for depression. Interventions: Through group and individual sessions, therapist will help pt identify triggers and warning signs of depression and guilt including emotional, physical, and behavioral changes. Therapist will teach pt various coping skills to manage symptoms and give pt tangible resources to use to regulate emotions. Therapist will use cognitive restructuring techniques and help pt gain awareness of negative thoughts that reinforce guilt and depression. Therapist will provide psychoeducation on maintenance cycles and help pt learn ways to break unhealthy maintenance cycles. Therapist will help pt incorporate behavioral activation and assist pt in setting SMART goals. Discharge Criteria: Pt will have met this goal when can report learning and using at least 2 coping skills to manage depressive symptoms and reduce isolation. Additionally, pt will have met this goal when pt's DSM-5 scores for depression decrease. Target Date: 04/14/25 Review Date: 03/22/25 Objective #2: Stated Objective: Pt will identify at least 2-3 negative self-talk messages used to reinforce negative core beliefs, worthlessness, and guilt and replace thoughts with balanced, realistic messages. Interventions: Therapist will help pt identify distorted, negative beliefs about self and replace with more realistic, affirmative messages. Therapist will use CBT and DBT to help pt increase insight to the connection between thoughts, emotions, and behaviors. Therapist will encourage pt to practice thought challenging. Discharge Criteria: Pt will have achieved this goal when can verbalize at least 2 cognitive distortions and effectively replace those thoughts with affirmative messages. Target Date: 04/14/25 Review Date: 03/22/25
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
--- NOTE | 2025-03-08 09:00 | BH.SGPN.GN ---
Behaviors/Verbalizations/Mental Status: [] Pt alert and oriented, neatly dressed and groomed. Eye contact good. Motor activity appropriate. Speech within normal limits. Affect incongruent-stressed but laughing, mood overwhelmed. Thoughts linear, logical, no signs of hallucinations or delusions. Reviewed pt?s symptom tracker, no risk for suicidal ideation, plan, or intent 03/08/25. Client Response/Progress/Benefit: []Pt was an active participant in group discussions. Attentive. Able to identify mental health wins including ?I?m here? and pt received a lot of positive encouragement from peers. Pt's stressor today is ?I my family is falling apart.? The group offered pt suggests managing this stressor and emotional support which pt reported was helpful. Pt able to give herself credit for choosing to work on her mental health despite these stressors. Pt is feeling ?all over the place? this morning. Pt receptive to feedback from peers. Benefited from group support, encouragement, and feedback. Progress noted. Will continue IOP tx to prevent decompensation, improve daily functioning, and gain healthy coping skills. ? Narrative Note: []
--- NOTE | 2025-03-08 10:10 | BH.SGPN.GN ---
Behaviors/Verbalizations/Mental Status: [] Pt alert and oriented, casual appearance, eye contact good. Motor activity appropriate. Speech within normal limits. Affect congruent. Mood calm. Thoughts linear, logical, no signs of hallucinations or delusions. Client Response/Progress/Benefit: [] Pt was an active participant in group discussions on defining conflict (internal/external) and possible benefits to conflict. Attentive during psychoeducation on conflict styles (avoidant, accommodating, competing, cooperative) and engaged during group discussion in which the group identified when it is beneficial to use conflict styles and pitfalls of each conflict style. Pt stated that she identified with the different conflict styles, and reported not typically struggling to engage in conflict with others. Pt was an active participant in small group exercise in which each group was given a scenario and a conflict resolution technique had to be utilized. Benefited from increased awareness of the impact of conflict styles on mental health. Will continue in IOP to increase coping skills, improve self-confidence, and prevent decompensation.
--- NOTE | 2025-03-08 11:10 | BH.SGPN.GN ---
Behaviors/Verbalizations/Mental Status: []Client alert and oriented, casually dressed and groomed. Eye contact fair. Motor activity appropriate. Speech within normal limits. Affect congruent, mood anxious. Thoughts linear, logical, no signs of hallucinations or delusions. Client Response/Progress/Benefit: [] Pt engaged in session AEB contributing to discussion and engaging in small group. Attentive during discussion on strategies for more effectively managing conflict in personal life. Pt noted current conflict resolution style uses the most is avoidant because doesn't want to cause any issues. Pt participated in small group for activity and did well practicing how to manage conflict scenarios. Pt given handout on fair fighting rules and how to identify common conflict barriers. Pt indicated what needs improvement in conflict for them. Appeared to benefit from gaining strategies to help pt better manage conflict. Will continue IOP tx improve distress tolerance, improve confidence, and prevent decompensation.
--- NOTE | 2025-03-10 09:02 | BH.SGPN.GN ---
Behaviors/Verbalizations/Mental Status: [] Pt alert and oriented, neat and casually dressed and groomed. Eye contact good. Motor activity appropriate. Speech within normal limits. Affect congruent, mood depressed and anxious. Thoughts linear, logical, no signs of hallucinations or delusions. Reviewed pt?s symptom tracker, pt reports suicidal ideation as a 1/5 which is within pt baseline. Denies plan or intention. Client Response/Progress/Benefit: [] Client responded well to session as evidenced by listening attentively to others, providing feedback, and processing with group. Per symptom tracker client reported a 4/5 for depression and a 5/5 for anxiety. Client reported mental health positive as challenging herself to group today despite difficulties with several of her intrusive thoughts and urges to feed into compulsions. Shared using sitting with the uncomfortable and opposite action Additional win noted as not having any crying spells the previous date. Stressor noted as waking up feeling lower today as a result. Client seemed to benefit from support from others and the group environment. Client to continue IOP to maintain safety, improve mood stability, and prevent decompensation. Narrative Note: []
--- NOTE | 2025-03-10 10:15 | BH.SGPN.GN ---
Behaviors/Verbalizations/Mental Status: []Pt alert and oriented, casually dressed and groomed. Eye contact good. Motor activity appropriate. Speech within normal limits. Affect congruent, mood stressed. Thoughts linear, logical, no signs of hallucinations or delusions. Client Response/Progress/Benefit: [] Pt was an attentive and active participant, AEB taking notes and providing input in group discussion. Attentive during psychoeducation. Pt engaged during interactive discussion in which the group defined self-care and discussed its benefits. Group discussed barriers and benefits to self-care. Identified benefits as being more productive, less physical pain, feeling happier, less irritability, and being more capable. Pt participated in small groups where they worked to identify and challenged common self-care ?myths?. Benefited from increased awareness of self-care, its benefits, and the consequences of not utilizing self-care strategies. Pt connected with myths of self-care being too expensive and too exhausting. Will continue IOP tx to prevent decompensation, improve distress tolerance skills, and improve daily functioning. Narrative Note: []
--- NOTE | 2025-03-10 11:10 | BH.SGPN.GN ---
Behaviors/Verbalizations/Mental Status: []Pt alert and oriented, casually dressed and groomed. Eye contact fair. Motor activity appropriate. Speech within normal limits. Affect congruent, mood anxious. Thoughts linear, logical, no signs of hallucinations or delusions. Client Response/Progress/Benefit: []Pt engaged participant AEB completing self-assessment worksheet and providing input throughout discussion. Participated in group discussion on the various areas of self-care. Pt completed worksheet identifying current self-care practices and what self-care activities pt wants to start using. Pt engaged in self-reflection activity in which pt's were asked to identify one area of self-care they would like to improve upon. Pt reported she would like to work on improving self-care by getting outside more often. Appeared to benefit from completing the self-care evaluation and gaining insights into current self-care practices, as well as identifying areas in which pt would like to improve upon.?Will continue IOP to improve distress tolerance, improve healhty coping, and prevent decompensation.
--- NOTE | 2025-03-15 09:00 | BH.SGPN.GN ---
Behaviors/Verbalizations/Mental Status: [] Pt alert and oriented, Casually dressed and groomed. Eye contact good. Motor activity appropriate. Speech within normal limits. Affect flat, mood calm. Thoughts linear, logical, no signs of hallucinations or delusions. Reviewed pt?s symptom tracker, 1/5 with 5 being severe for risk for suicidal ideation, indicates a 0/5 for plan, and intent to kill self. Pt does not appear to be imminent risk to harm self.03/15/25. Client Response/Progress/Benefit: []Pt was an active participant in group discussions. Attentive. Per patients daily symptom tracker, pt indicates a 4/5 for depression and a 3/5 for anxiety, with 5 being severe. Pt struggled to find mental health positives to share with the group. Pt stated that they had been having a panic attack before coming to group because they woke up late and were nervous about walking in late. Pt's partner was able to convince them to come, reminding her that she will feel better if she does. Pt came to group about 10 minutes late. Pt was able to acknowledge that coming to group despite being anxious was a mental health positive, but was unable to find a second win. Pt stated that they were feeling empty, and flat. They stated that this is not typical for them, as they usually feel their emotions very strongly. Pt was unsure of why she was feeling flat today. Pt was supportive and attentive to others in the group. Pt seemed to benefit from support from peers. Will continue IOP tx to promote healthy coping mechanisms, reduce negative thinking patterns, and prevent decompensation.
--- NOTE | 2025-03-15 10:10 | BH.SGPN.GN ---
Behaviors/Verbalizations/Mental Status: [] Eye contact is fair to good. Motor activity is appropriate. Appearance is casual. Speech is soft, limited input. Mood is euthymic. Affect is congruent. Thoughts are linear and logical. No evidence of psychosis. Client Response/Progress/Benefit: [] Client was an active participant in group discussion and experiential activity.. Attentive during psychoeducation on resilience. Participated in interactive discussion with peers on the definition of resilience and where it comes from. Group identified that resiliency can be impacted by; past experiences, personality, and current mental health state. Group also worked together to identify the benefits of being resilient and how it is related to mental health. Able to relate experiential activity of group juggle to topics of resilience. Worked well with peers in small group in which they identified factors that contribute to resilience. Benefited from increased awareness of resilience and the factors that contribute to building resilience. Will continue in IOP to prevent decompensation and further promote mood stability. Narrative Note: []
--- NOTE | 2025-03-15 14:45 | BH.MDN_ITS ---
Multi-Disciplinary Note Note 60-min Individual: Time Started:: 11:17 Date: 03/15/25 Purpose of session/treatment goals addressed:: Purpose of this session was to address tx plan goals #1 obj #1 and goal #2 obj #1. Eye Contact:: Good Motor Activity:: Appropriate Appearance:: Casual Speech:: Appropriate Mood:: Depressed Affect:: Congruent Thoughts:: Linear, Logical and No evidence of hallucinations/delusions noted Staff Interventions:: thought challenging, psychoeducation on: (mainten ance cycles, behavioral activation), CBT techniques, strengths perspective and goal setting Client Response:: Pt responded well to session, open to meeting with therapist. Pt reports she is not doing well ?in general? and explained that she has been struggling significantly with motivation. Reports that she feels she has no energy or desire to complete tasks beyond the basic caregiving responsibilities for her daughter. Noted ?I can?t get off the couch? and often her boyfriend ends up doing much of the caregiving and household responsibilities. Describes spending a majority of her time watching t.v. or scrolling on her phone but is not finding this to be enjoyable. Reports difficulties connecting with her daughter and boyfriend as well, which is re inforcing negative self-talk statements and thoughts that she shouldn?t be a mother. Pt receptive of psychoeducation on the cognitive triangle and unhealthy maintenance cycles. Pt identified her own thoughts and behaviors reinforcing depression and anxiety maintenance cycles. Pt provided insight that staying in the same clothes, not moving her body, and sleeping throughout the day are likely reinforcing depressive sx. Additionally, recognized that the more she isolates the harder it is to manage her social anxieties and was receptive to further education on exposure therapy. Receptive of discussion on using behavioral activation techniques alongside thought challenging to begin breaking unhealthy maintenance cycles. Did well to identify common mood boosting activities, as well as those that negatively impact her mood. Identified a goal of engaging in at least 2 of the identified mood boosters per day. Risks/Concerns:: Pt denies SI, plan, or intent as of this date 03/15/25 Progress Toward Goals/Plan:: Limited progress, pt started IOP last week. Pt does appear to do better when she does not isolate, so the structure and support from peers could be beneficial for pt. Pt was receptive to thought challenging by therapist today and discussion on exposure and [id number] activation techniques to improve mood stability, functioning, and reduce depressive sx. Pt's symptoms continue to impact her daily functioning and ability to complete her ADLs. Pt will continue IOP tx to prevent decompensation, improve daily functioning, and increase use of healthy coping skills. Time Stopped:: 12:30
--- NOTE | 2025-03-17 09:00 | BH.SGPN.GN ---
Behaviors/Verbalizations/Mental Status: [] Pt alert and oriented, Casually dressed and groomed. Eye contact good. Motor activity appropriate. Speech within normal limits. Affect congruent, mood calm. Thoughts linear, logical, no signs of hallucinations or delusions. Reviewed pt?s symptom tracker today, denies suicidal ideation, plan, and intent.03/17/25. Client Response/Progress/Benefit: []Pt was an active participant in group discussions. Attentive. Per patients daily symptom tracker, pt indicates a 1/5 for depression and a 1/5 for anxiety, with 5 being severe. Pt shared her mental health win as going to bed early the previous night. Pt reported feeling able to sleep better, and felt more refreshed when waking up for group as opposed to nights where she went to bed after midnight. Pt's other mental health positive was completing the homework that she had been given in individual therapy, stating that she felt motivated to get it done, where she would typically put it off. Pt's stressor is dealing with an increase in OCD symptoms. Pt states that despite the increase in symptoms, she feels that she has been able to cope with them, and reports her mood as hopeful. Pt was supportive and attentive to others in the group. Pt seemed to benefit from support from peers. Will continue IOP tx to promote healthy coping mechanisms, reduce negative thinking patterns, and prevent decompensation.
--- NOTE | 2025-03-17 10:15 | BH.SGPN.GN ---
Behaviors/Verbalizations/Mental Status: [] Eye contact is good. Motor activity is appropriate. Appearance is casual. Speech is Appropriate. Mood is anxious. Affect is congruent. Thoughts are linear and logical. No evidence of psychosis. Client Response/Progress/Benefit: [] Pt was engaged and participating throughout, providing input and taking notes. Attentive during psychoeducation on anxiety and cognitive triangle. Participated in an interactive discussion on defining anxiety and identifying cognitive and physiological symptoms of anxiety. The group discussed helpful vs harmful anxiety. Pt along with peers worked together to identify common physical/physiological signs of anxiety which included: butterflies in stomach, tension, increased HR, trembling, dry mouth, headaches, numbness/tingling, hot flashes, sweating, and blurry vision. Benefited from increased awareness and insight on anxiety and its impact. Will continue in IOP to prevent decompensation, stabilize mood, and promote use of healthy coping skills. Narrative Note: []
--- NOTE | 2025-03-17 11:15 | BH.SGPN.GN ---
Behaviors/Verbalizations/Mental Status: [] Eye contact is good. Motor activity is appropriate. Appearance is appropriate. Speech is Appropriate. Mood is anxious. Affect is congruent. Thoughts are linear and logical. No evidence of psychosis. Client Response/Progress/Benefit: [] Pt was an active participant AEB pt providing input and listening attentively to peers. Attentive during psychoeducation on mindfulness coping skills, body-based coping skills, and mind-based coping skills and their impact on reducing anxiety and improving overall mental health wellness. Group was able to identify self-soothing and mind-based coping skills which included: 5-senses, meditation, deep breathing, walking/exercise, music, engaging with others, opposite-action, and affirmations. Pt verbalized skill to make effort to use this week as: EFT tapping and deep-breathing. Pt will continue IOP to prevent decompensation, maintain safety, increase healthy coping, and improve functioning. Narrative Note: []
== END 2025-03-24 23:59 ==
LOC: BHIOP 08:00
PROVIDERS: PCP Nurse Practitioner Family; Referring Provider Student in an Organized Health Care Education/Training Program; Visit Provider Student in an Organized Health Care Education/Training Program
DX: F42.9 Obsessive-compulsive disorder, unspecified (principal); F32.9 Major depressive disorder, single episode, unspecified
CPT/HCPCS: H2012; H2020; S9480; 90837

== ENCOUNTER 2025-03-27 08:34 | Outpatient (RCR) | payer MEDICAID, SELFPAY ==
--- NOTE | 2025-03-27 13:15 | BH.MTP_ITS ---
Treatment Plan Review Demographics Date of Admission:: 03/01/25 Date of Treatment Plan Review:: 03/27/25 Admitting Diagnoses:: OCD; Major Depressive Disorder Current Diagnoses:: OCD; Major Depressive Disorder Patient Status Patient's Response to Treatment:: Patient has demonstrated semi-consistent attendance and participation in Intensive Outpatient Program (IOP) level of care. Pt has had several no-call/no shows; however, when in attendance she is actively engaged. Pt appears motivated for treatment. Reports benefiting from IOP interventions and psychoeducation. Medication adherence remains consistent. Patient has responded positively to individual counseling sessions, though is inconsistent with homework and skill application outside tx environment. He was provided psychoeducation regarding the relationship between cannabis use and anxiety, which she reviewed and discussed with the therapist. Patient demonstrates insight into the impact her safety behaviors have on maintaining OCD sx as well and is open to working on exposure goals to address these. Status of Current Problems and Symptoms: Primary symptoms include generalized anxiety and depressive features, characterized by low energy, diminished motivation, intermittent sadness, and significant anxiety related to situational stressors and OCD sx. Patient endorses excessive ruminative thinking and persistent worry about her future. The goal of IOP will be to maintain therapeutic gains, stabilize mood, and enhance adaptive coping strategies. Encourage abstinence from substances as well. Reviewed patient?s DSM-5 Cross- Cutting Symptom Measure scores. Admission total was 61. Three-week follow-up score at 59, suggesting no significant clinical decompensation during treatment and mild progress. Progress Problem #1: Problem Name:: OCD Status of Goals:: obj1- not complete. The patient has identified and begun working on small exposure goals but is inconsistent in skill application due to continued depressive sx and external stressors. Pt has been able to accomplish several small exposure goals regardless and will continue to work with therapist in address this. obj2- Not complete. Pt can identify several distress tolerance skills for managing urges to engage in compulsions; however, pt struggles with consistent application of these skills. Team Recommendations:: Recommended to continue current tx goals with focus on consistency. Problem #2: Problem Name:: Depression Status of Goals:: Obj #1: Some progress as pt scores for depression have reduced by 13% since IOP admission. Reports the social support of the group and engaging in more consistent thought challenging practices is helping. Would benefit from increased consistency. Obj #2: Continued progress needed. Pt can identify and challenge negative self-talk messages afterward but struggle with in the moment skill application. Team Recommendations:: continue with current plans as pt is responding well to IOP level of care.
--- NOTE | 2025-03-28 08:09 | BH.MDN_ITS ---
Multi-Disciplinary Note Note 45-min Individual: Time Started:: 10:25 Date: 03/28/25 Purpose of session/treatment goals addressed:: Purpose of this session was to address recent stressor reinforcing mood sx. Eye Contact:: Good Motor Activity:: Appropriate and Restless Appearance:: Casual Speech:: Appropriate and Pressured Mood:: Anxious and Dysthymic Affect:: Congruent Thoughts:: Linear, Logical, Racing and No evidence of hallucinations/delusions noted Staff Interventions:: thought challenging, motivational interviewing, psychoeducation on: (hierarchy of needs ), CBT techniques and other (provided local resources) Client Response:: Pt receptive of session, actively engaged throughout. Pt reports she is feeling better this morning after spending the last week struggling with unexpected illness. She explained that due to illness she was unable to do as much as she would have liked; however, did note continued progress on small exposure goals of regularly brushing her teeth and showering. Pt Identified additional progress on goals of going to the store to gather the ingredients and make her family dinner. Shared she has also been trying to spend more time with her daughter, describing taking her [id number] and playing fall holiday games. Pt noted her current stressor as her boyfriend losing his job and the government shutdown effecting their SNAP benefits. Reports feeling overwhelmed and ?doomed? as she does not know how they will continue to have their basic needs met. Described not having the funds they need to pay rent either, as pt has exhausted her savings in the last 3 years trying to continue to make ends meet. Reports feeling she is ?losing my mind? and catastrophizing to worst case scenario thoughts of being homeless. With gentle challenging pt able to identify that she would have support from her mother if they lost their housing, but does not want to have to resort to this. Receptive of psychoeducation on Maslow?s Hierarchy of Needs and how unmet needs can impact mental health stability. Receptive of referral information on local agency resources such as the [employer] program and [employer]. Pt reports plans to stop by the bank handing out supplies this afternoon. Risks/Concerns:: Pt denies SI, plan, or intent as of this date 03/28/25 Progress Toward Goals/Plan:: Progress noted, pt sick last week but continues to work on her tx goals. Pt does appear to do better when she does not isolate, so some dip in mood in the past week as a result. Does note increased engagement with her daughter and family. Recent stressors of limited financial resources have impacted her mood and reinforced anxiety maintenance cycles. Pt's symptoms continue to impact her daily functioning and ability to consistently complete her ADLs. Pt will continue IOP tx to prevent decompensation, improve daily functioning, and increase use of healthy coping skills.
--- NOTE | 2025-03-28 09:00 | BH.SGPN.GN ---
Behaviors/Verbalizations/Mental Status: [] Pt alert and oriented, Casually dressed and groomed. Eye contact good. Motor activity appropriate. Speech within normal limits. Affect congruent, mood anxious. Thoughts linear, logical, no signs of hallucinations or delusions. Reviewed pt?s symptom tracker today, denies suicidal ideation, plan, and intent.03/28/25. Client Response/Progress/Benefit: []Pt was an active participant in group discussions. Attentive. Per patients daily symptom tracker, pt indicates a 1/5 for depression and a 1/5 for anxiety, with 5 being severe. Pt struggled to come up with mental health positives, stating that she has had a difficult week, but stated recovering from a sickness as one of her wins. Pt talked about her stressor being the government shut down pausing [employer] resources, making her worried about feeding her family. She is also worried about finances due to financial struggles. Pt was responsive to some resources shared by other group members. Pt was supportive and attentive to others in the group. Pt seemed to benefit from support from peers. Will continue IOP tx to promote healthy coping mechanisms, reduce negative thinking patterns, and prevent decompensation.
--- NOTE | 2025-03-28 11:10 | BH.SGPN.GN ---
Behaviors/Verbalizations/Mental Status: []Pt alert and oriented, neatly dressed and groomed. Eye contact good. Motor activity appropriate. Speech within normal limits. Affect congruent, mood anxious. Thoughts linear, logical, no signs of hallucinations or delusions. Client Response/Progress/Benefit: [] Pt was an active participant during group discussions and group activities. This portion of group was very psychoeducation heavy and pt was attentive during psychoeducation. Engaged during activity in which they identified their own maintenance cycles with food and how it impacts their mental health symptoms. Pt and peers identified barriers to breaking these cycles as well as ways to combat barriers. Pt stated she wants to work on finding easier, healthy meals to make. Benefited from increased awareness of the connection between nutrition and mental health and from identifying strategies. Will continue in IOP to prevent decompensation, improve daily functioning, and gain healthy coping skills. Narrative Note: []
--- NOTE | 2025-03-29 09:00 | BH.SGPN.GN ---
Behaviors/Verbalizations/Mental Status: [] Pt alert and oriented, Casually dressed and groomed. Eye contact fair. Motor activity appropriate. Speech within normal limits. Affect congruent, mood depressed. Thoughts linear, logical, no signs of hallucinations or delusions. Reviewed pt?s symptom tracker today, denies suicidal ideation, plan, and intent.03/29/25. Client Response/Progress/Benefit: []Pt was an active participant in group discussions. Attentive. Per patients daily symptom tracker, pt indicates a 1/5 for depression and a 1/5 for anxiety, with 5 being severe. Pt's mental health positive was coming consistently to group despite having a schedule change. Her other mental health positive was making multiple phone calls that she had been putting off due to anxiety. Pt's stressor was dealing with the potential loss of her SNAP benefits due to government shut down. Pt has been reaching out to different resources for assistance. Pt seemed to benefit from support from peers. Will continue IOP tx to promote healthy coping mechanisms, reduce negative thinking patterns, and prevent decompensation.
--- NOTE | 2025-03-29 10:10 | BH.SGPN.GN ---
Behaviors/Verbalizations/Mental Status: [] Pt alert and oriented, casually dressed and groomed. Eye contact good. Motor activity appropriate. Speech within normal limits. Affect congruent, mood euthymic. Thoughts linear, logical, no signs of hallucinations or delusions. Client Response/Progress/Benefit: [] Pt was an active participant in group discussions and activity. Attentive during psychoeducation. Pt along with peers were able to identify several negatives on the picture given to the group. Pt and peers also identified positives in the picture and made the connect that finding positives is much more difficult. Interactive discussion on the definition of perspective, how perspective is formed, and why perspective is important in treatment. Pt along with peers also identified that perspective can either motivate and encourage treatment or be a barrier to receiving help. Will continue in IOP to promote gains, further decrease anxiety, and increase emotional regulation skills. Narrative Note: []
--- NOTE | 2025-03-29 11:10 | BH.SGPN.GN ---
Behaviors/Verbalizations/Mental Status: [] Pt alert and oriented, casually dressed and groomed. Eye contact good. Motor activity appropriate. Speech within normal limits. Affect congruent, mood euthymic. Thoughts linear, logical, no signs of hallucinations or delusions. Client Response/Progress/Benefit: [] Pt was attentive and contributed in small and larger group discussion. Pt completed strengths exploration worksheet and identified personal strengths to include: empathy. Pt able to acknowledge how these strengths are helping her and can continue to help pt in her mental health journey. Shared wanting to focus on going over IOP notes to serve as reminders and review over what she has learned. Benefited from identifying personal strengths and strategies for enhancing use of identified strengths. Pt to continue IOP tx to promote use of healthy coping skills, increase self-confidence, and reduce negative thinking patterns. Narrative Note: []
--- NOTE | 2025-04-05 08:34 | BH.MDN ---
Multi-Disciplinary Note Note 45-min Individual: Time Started:: 11:06 Date: 04/05/25 Purpose of session/treatment goals addressed:: Purpose of session was to address and create a coping plan for maladaptive coping urges. Eye Contact:: Good Motor Activity:: Appropriate Appearance:: Casual Speech:: Appropriate Mood:: Dysthymic Affect:: Congruent Thoughts:: Linear, Logical and No evidence of hallucinations/delusions noted Staff Interventions:: thought challenging, motivational interviewing, CBT techniques and taught coping skills Client Response:: Pt receptive of session, willing to process recent sx and stressors. Pt noted that she has not followed-up with the [facility] as she does not check her voicemails out of anxiety that they will have ?bad news?. Pt reports that she has been ?a little down this week? due to ongoing tension in her relationship with her boyfriend as a result of his continued difficulties in maintaining employment. Additionally, pt reported feeling exhausted by parenting responsibilities and cooking dinner everyday this past week. Pt identified that she has also been working with her outpatient therapist on processing her trauma hx. Pt explained that this has all been weighing on her and she found herself drinking alcohol 3 days in the past week. Pt reported this has scared her as her family has had issues with relying on alcohol or drugs to cope. Shared that she has always wanted to set a better example for her daughter and this has led to pt considering quitting her marijuana use as well. Pt went on to identify a goal of gradually tapering her use and trying to find hands-on activities she can use to keep her distracted when wanting to smoke. Reviewed urge surfing skills as well. Pt identified plans to do things such as bake or play with her daughter when tempted. Risks/Concerns:: Pt denies SI, plan, or intent as of this date 04/05/25 Progress Toward Goals/Plan:: Some regression, pt reports improved ability to cope with recent financial stressors, however this continues to be a source of tension. Does note ongoing issues with negative thinking patterns and urges to engage in maladaptive coping. Able to create a healthier coping plan. Pt recommended continued IOP tx to improve mood stability, prevent further maladaptive coping, and prevent decompensation. Time Stopped:: 11:50
--- NOTE | 2025-04-05 09:05 | BH.SGPN.GN ---
Behaviors/Verbalizations/Mental Status: []Eye contact is good. Motor activity is appropriate. Appearance is casual. Speech is Appropriate. Mood is content. Affect is congruent. Thoughts are linear and logical. No evidence of psychosis. Reviewed daily check in sheet and pt denies SI, plan, or intent as of this date 04/05/25. Client Response/Progress/Benefit: [] Pt was an active participant in group discussions. Attentive. Did well to identify 2 mental health wins, which included being able to make dinner despite several setbacks along the way. Did not let these stop her from trying again or adjusting the recipe. Additional win noted as making it to group after being sick earlier in the week. Stressor noted as struggling with sleep. Appeared to benefit from provided support, encouragement, and feedback. Will continue IOP tx to improve mood stability, develop healthy coping repertoire, and prevent decompensation. Narrative Note: []
--- NOTE | 2025-04-05 10:10 | BH.SGPN.GN ---
Behaviors/Verbalizations/Mental Status: []Pt alert and oriented. Casually dressed and groomed, eye contact good. Motor activity appropriate. Speech within normal limits. Affect congruent. Mood calm. Thoughts linear, logical, no signs of hallucinations or delusions. Client Response/Progress/Benefit: [] Pt was an active participant, taking notes and engaging in group discussion and activity. Connected with the topic of pitfalls and participated in group discussion about barriers that prevent from choosing a healthier path to mental wellness. Pt participated in discussion on pitfalls, what they are, and ways that we stay stuck in them. Group worked together to identify examples of internal and external pitfalls, including depression, isolation, and suicidal thoughts. Pt benefited from group and psychoeducation on pitfalls as pt learned to better identity potential barriers to improving mental health symptoms. Pt was an active participant in activity meant to demonstrate pitfalls and how to cope with them. Pt suggested ways to help during the activity, such as slowing down, to increase success. Pt will continue IOP tx decrease negative thinking patterns, improve daily functioning, and prevent decompensation.
--- NOTE | 2025-04-05 10:10 | BH.SGPN.GN ---
Behaviors/Verbalizations/Mental Status: []Pt alert and oriented, casually dressed and groomed. Eye contact good. Motor activity appropriate. Speech within normal limits. Affect congruent, mood euthymic. Thoughts linear, logical, no signs of hallucinations or delusions. Client Response/Progress/Benefit: [] Pt was an active participant AEB taking notes and engaging in group activity. Connected with the topic of pitfalls and listened to group discussion on barriers that prevent from choosing a healthier path to mental wellness. Group worked together to identify examples of personal pitfalls. These examples included; having unrealistic expectations, not trusting, not asking for help, and shutting down. Pt benefited from group as pt learned to better identify potential barriers to improving mental health symptoms. Pt will continue IOP tx to promote healthy coping, improve emotion regulation, and prevent decompensation.
--- NOTE | 2025-04-07 09:00 | BH.SGPN.GN ---
Behaviors/Verbalizations/Mental Status: [] Pt alert and oriented, Casually dressed and groomed. Eye contact good. Motor activity appropriate. Speech within normal limits. Affect congruent, mood calm. Thoughts linear, logical, no signs of hallucinations or delusions. Reviewed pt?s symptom tracker today, denies suicidal ideation, plan, and intent.04/07/25 Client Response/Progress/Benefit: []Pt was an active participant in group discussions. Attentive. Per patients daily symptom tracker, pt indicates a 2/5 for depression and a 2/5 for anxiety, with 5 being severe. Pt's mental health positive was sleeping better the past few days. Pt stated that she has been holding herself accountable, and putting her phone down at an appropriate time so that she can sleep. She stated that this also helped her not to feel anxious and rushed this morning. Pt's other mental health win was making dinner every night this week, and not ordering out. Pt stated that everything has been going well for her the past week, and that she currently does not have a stressor to report. Pt was supportive and attentive to others in the group. Pt seemed to benefit from support from peers. Will continue IOP tx to promote healthy coping mechanisms, decrease negative thinking patterns, and prevent decompensation.
--- NOTE | 2025-04-07 10:10 | BH.SGPN.GN ---
Behaviors/Verbalizations/Mental Status: [] Eye contact is good. Motor activity is appropriate. Appearance is casual. Speech is Appropriate. Mood is anxious. Affect is congruent. Thoughts are linear and logical. No evidence of psychosis. Client Response/Progress/Benefit: [] Pt was an active participant in group discussions. Attentive during psychoeducation. Contributed during interactive discussions in which peers attempted to define crisis. Group identified examples of crisis. Group also worked together to identify warning signs and unhealthy responses to crisis which included impulsivity, isolation, significant sleep changes, irrational thoughts/behaviors, and suicidal thoughts. Pt identified top 3 personal warning signs as:lack of self-care, using drugs more, and crying more. Benefited from increased understanding of crisis and awareness of personal responses to crisis. Pt will continue IOP tx to increase distress tolerance skills, reduce negative thinking patterns, and prevent decompensation. Narrative Note: []
--- NOTE | 2025-04-07 11:15 | BH.SGPN.GN ---
Behaviors/Verbalizations/Mental Status: []Pt alert and oriented, appropriate grooming/appearance. Eye contact good. Motor activity appropriate. Speech within normal limits. Affect congruent, mood anxious and content. Thoughts linear, logical, no signs of hallucinations or delusions. Client Response/Progress/Benefit: []Pt was an active participant in group discussions. Attentive during psychoeducation. In small group pt along with peers developed an active plan for their crisis warning signs. Pt identified three crisis warning signs as well as an action plan for each. One crisis warning sign was increased substance use. Pt identified strategies to help with this such as: disrupt routine, opposite action, and healthy distraction. Benefited from increased awareness of crisis warning signs and by developing crisis intervention strategies. Will continue in IOP to improve distress tolerance, challenge distortions, and prevent decompensation. Narrative Note: []
--- NOTE | 2025-04-10 09:00 | BH.SGPN.GN ---
Behaviors/Verbalizations/Mental Status: [] Eye contact is good. Motor activity is appropriate. Appearance is casual. Speech is Appropriate. Mood is anxious and irritable. Affect is congruent. Thoughts are linear and logical. No evidence of psychosis. Reviewed daily check in sheet and no reports of suicidal ideations Client Response/Progress/Benefit: [] Pt participated when prompted. She started off check in with superficial conversation and then began to share significant distress related to her relationship. She had a crucial conversation with her bf yesterday and believes that it is most likely they are going to ?break-up?. She shared her frustrations with the relationship which let to her initiating the conversation. These concerns have been ongoing so this was not an impulsive reaction. She believes she communicated her needs and expectations well. At this point the future of the relationship is uncertain which is causing distress. Benefited from group support, encouragement, and feedback. Will continue in IOP to prevent decompensation, increase healthy coping, and improve functioning Narrative Note: []
--- NOTE | 2025-04-10 10:10 | BH.SGPN.GN ---
Behaviors/Verbalizations/Mental Status: [] Eye contact is good. Motor activity is appropriate. Appearance is casual. Speech is Appropriate. Mood is content. Affect is congruent. Thoughts are linear and logical. No evidence of psychosis. Client Response/Progress/Benefit: [] Pt engaged participant AEB listening to others, engaging in activity, and providing feedback throughout. Attentive during psychoeducation and provided insight into obstacles that impede mental wellness. Pt shared with group current mental health reality and desired mental health reality. Identified barriers to desired reality which included difficulties with distortions, negative self-talk, and isolating. Benefited from taking look at current mental health state and obstacles for progress. Pt to continue in IOP tx to prevent decompensation, stabilize mood, and improve functioning. Narrative Note: []
--- NOTE | 2025-04-10 11:10 | BH.SGPN.GN ---
Behaviors/Verbalizations/Mental Status: [] Eye contact is good. Motor activity is appropriate. Appearance is casual. Speech is Appropriate. Mood is anxious and content. Affect is congruent. Thoughts are linear and logical. No evidence of psychosis. Client Response/Progress/Benefit: [] Pt was an engaged participant in group discussion and activity. Worked with group to identify strategies to help overcome barriers and obstacles to desired reality. Group developed strategies for the common barriers. Identified personal barriers to desired reality which included Self-doubt, fear, all or nothing thinking, and resentment. Was able to identify a skill to implement immediately to address absolute thinking. Pt seemed to benefit from increased repertoire of healthy coping skills/strategies to overcome common barriers to moving forward. Will continue in IOP to prevent decompensation, stabilize emotions, increase healthy coping, and improve functioning. Narrative Note: []
--- NOTE | 2025-04-12 09:00 | BH.SGPN.GN ---
Behaviors/Verbalizations/Mental Status: [] Pt alert and oriented, Casually dressed and groomed. Eye contact good. Motor activity appropriate. Speech within normal limits. Affect congruent, mood calm. Thoughts linear, logical, no signs of hallucinations or delusions. Reviewed pt?s symptom tracker today, denies suicidal ideation, plan, and intent.04/07/25 Client Response/Progress/Benefit: []Pt was an active participant in group discussions. Attentive. Per patients daily symptom tracker, pt indicates a 2/5 for depression and a 1/5 for anxiety, with 5 being severe. Pt's first mental health win was showing up for group today despite wanting to stay home. Her other mental health positive was that she plans to stop smoking marijuana today, as she has run out. Pt stated that she is very nervous for this, and did not have a plan for accountability, however she knows that it is better for her to stop. Pt's stressor was a potential break-up with her partner. Pt stated that she feels she cannot rely on her partner to provide for her and their child. Pt stated that she hopes her partner will be able to get a stable job so that they can stay together, but she is unsure if he is able. Pt made the choice to move back in with her parents while looking for a job. Pt was supportive and attentive to others in the group. Pt seemed to benefit from support from peers. Will continue IOP tx to promote healthy coping mechanisms, decrease negative thinking patterns, and prevent decompensation.
--- NOTE | 2025-04-12 09:03 | BH.MDN_ITS ---
Multi-Disciplinary Note Note 60-min Individual: Time Started:: 10:47 Date: 04/12/25 Purpose of session/treatment goals addressed:: Purpose of session was to aid pt in processing recent stressor, challenge distortions associated, and identify interpersonal effectiveness skills she can use. Eye Contact:: Good (tearful) Motor Activity:: Appropriate and Restless Appearance:: Casual Speech:: Appropriate and Pressured Mood:: Anxious and Dysthymic Affect:: Congruent Thoughts:: Linear, Logical and No evidence of hallucinations/delusions noted Staff Interventions:: thought challenging, motivational interviewing, CBT techniques, discharge planning, strengths perspective and taught coping skills (reviewed interpersonal effectiveness skills) Client Response:: Pt responded well to session, actively engaged throughout. At times tearful, as pt shared she and her boyfriend broke up and pt is in the process of moving back in with her mother. Noted that she addressed concerns regarding her ex-boyfriends willingness to commit to maintaining employment and he indicated he was ?not sure? he would be able to do so. Pt reports that she did not want to end the relationship but realizes that they are not able to be healthy together. Shared that his unwillingness to commit to supporting their financial stability now that pts savings have been exhausted was her ?final straw?. Pt shared that she has been struggling with thoughts of ?wanting to save him? by returning to the relationship and thoughts of anger and hurt. Noted that she has been able to use her mother and sister as supports while she works on moving her and her daughter?s belongings to her mother?s house. Pt described thoughts of ?failing? and feeling that she proved everyone who warned her about the relationship being unsustainable in high school right. Did well to work with therapist on challenging distortions and applying both use of dialects and self-compassion in the process. Pt did indicate wanting to create a healthy co-parenting relationship and reports plans to sit down with her ex to discuss boundaries and co-parenting/visitation expectations. Did well to look at what is in her control and what is not going into the discussion as well. Risks/Concerns:: Pt denies SI, plan, or intent as of this date 04/12/25 Progress Toward Goals/Plan:: Progress noted. Pt reports following through with a crucial conversation with her now ex-boyfriend regarding the relationship. Reports advocating for her needs and establishing her boundaries in doing so. Used several grounding and distress tolerance skills to follow- through. Despite this stressor, pt reports feeling hopeful for her and her daughter?s future and was able to identify various goals for them moving forward. Recommended continued IOP tx to prevent decompensation and maintain mood stability as pt navigates the change in her relationship. Time Stopped:: 11:50
--- NOTE | 2025-04-12 10:15 | BH.SGPN.GN ---
Behaviors/Verbalizations/Mental Status: [] Client alert and oriented, casually dressed and groomed. Eye contact good. Motor activity appropriate. Speech within normal limits. Affect congruent, mood euthymic. Thoughts linear, logical, no signs of hallucinations or delusions. Client Response/Progress/Benefit: [] Client responded well to session AEB taking notes throughout and listening attentively to others. Client was attentive throughout group activity identifying famous individuals and how they overcame failure to be successful. Client helped group identify how fear of failure can impact mental health and relationships. Group identified it leads to self-sabotage, not trying, avoidance, and isolation. Client participated in experiential activity, working with group members to problem solve. Appeared to benefit from increased knowledge of fear of failure. Will continue IOP tx to improve self-confidence, reduce distorted thinking patterns, and increase self worth. Narrative Note: []
--- NOTE | 2025-04-14 07:49 | PCM.BH.PN ---
Intake Vital Signs 03/03/25 10:14 04/14/25 07:49 Height 5 ft 5 ft Weight: 105 lb BP 135/89 H Pulse 96 Intake Visit Reasons: Follow-up Allergies No Known Allergies Allergy (Verified 03/03/25 09:57) Medications ?Medication ?Instructions ?Recorded ?Confirmed ?Type fluoxetine 20 mg capsule 20 mg PO QDAY #30 caps 04/14/25 Rx HPI () History of Present Illness History provided by: patient Chief complaint: depression/anxiety HPI: Ivelisse Lyn is a 19 year old female who presents today for follow up evaluation. Patient reports that she has been pretty good. Has gone through some life changes. Has split from her boyfriend after getting back together with him a few days ago. Plans to move back in with her mother with her daughter. Has been sleeping pretty good. Getting about 6 minimum per night. Trying to cut back on how much marijuana she is smoking. Does feel like fluoxetine is working largely well to this point but does at times feel like she still experiences mood symptoms. Denies any significant panic attack type symptoms. Review of systems () Constitutional Denies: fever(s), chills, change in weight or fatigue Eyes Denies: change in vision or blurry vision Ears, Nose, Mouth, Throat Reports: vertigo; Denies: throat pain, neck pain or change in hearing Cardiovascular Reports: palpitations; Denies: chest pain or dyspnea Respiratory Denies: dyspnea, cough or wheezing Gastrointestinal Denies: abdominal pain, nausea, vomiting, diarrhea or constipation Genitourinary Denies: dysuria or urinary frequency Musculoskeletal Denies: back pain, neck pain, joint pain or muscle weakness Integumentary/Breast Denies: rash or new lesions Neurological Reports: dizziness and vertigo; Denies: headache(s) or confusion Endocrine Denies: fatigue or excessive sweating Hematologic/Lymphatic Denies: easy bruising or easy bleeding Allergic/Immunologic Denies: wheezing Exam Mental Status Exam- Psych () Appearance casually dressed Attitude engaged Activity/Motor Behavior MSE activity/motor behavior finding no adventitious movements Speech regular rate, regular volume and regular prosody Mood OK (Pretty good) Affect congruent Thought Process linear, logical and coherent Thought Content no delusions and no hallucinations Suicidal Ideation passive; Not active and No intent Homicidal Ideation none Attention intact Concentration intact Sensorium/Orientation awake, alert and oriented x3 Memory/Cognition other (appropriate for stated age) Insight fair Judgement good Assessment & Plan () Assessment & Plan (1) OCD (obsessive compulsive disorder): Plan: - Increase fluoxetine to 20 mg every day still having some mild OCD symptoms ?Patient was informed about the risk, benefits and possible side effects of SSRI type medications. These side effects include but are not limited to nausea, diarrhea, headache, increased bleeding risk, and sexual dysfunction. (2) MDD (major depressive disorder): Plan: - see above (3) Cluster B personality disorder: Plan: - Stable Charges/Coding Behavior Health Behavior Health EST Pt E/M: 17308 Est Pt Level IV
--- NOTE | 2025-04-14 10:10 | BH.SGPN.GN ---
Behaviors/Verbalizations/Mental Status: [] Pt alert and oriented, casually dressed and groomed. Eye contact fair. Motor activity appropriate. Speech within normal limits. Affect full , mood euthymic, Thoughts linear, logical, no signs of hallucinations or delusions. Client Response/Progress/Benefit: [] Pt participated in group discussion. Group worked together to identify benefits of healthy relationships which included improves mental health, encouragement, motivation, accountability, validation, connection, someone to share experiences with, and support during challenges. Group identified factors that lead to unhealthy relationships which included trauma, lack of communication, and substance use. Benefited from increased insight and awareness of benefits of healthy relationships and factors that contribute to unhealthy relationships. Will continue in IOP to increase consistent use of healthy coping skills, challenge negative thoughts, and prevent decompensation. Narrative Note: []
--- NOTE | 2025-04-14 11:10 | BH.SGPN.GN ---
Behaviors/Verbalizations/Mental Status: [] Pt alert and oriented, casually dressed and groomed. Eye contact fair. Motor activity appropriate. Speech within normal limits. Affect full , mood euthymic, Thoughts linear, logical, no signs of hallucinations or delusions. Client Response/Progress/Benefit: [] Client responded well to session, engaged and taking notes throughout. Worked with group to connect components of the experiential activity with characteristics of healthy and unhealthy relationships. Attentive during psychoeducation about characteristics of healthy, unhealthy, and abusive relationships. Group member picked unhealthy and healthy attributes of an important relationship in their lives. Client reported they would like to continue to improve honesty and trust in their chosen relationship. Appeared to benefit from identifying current healthy relationship attributes and an area client wants to work on to build healthier relationships. Client to continue IOP to increase healthy coping skills, increase selfcare, and prevent decompensation. Narrative Note: []
--- NOTE | 2025-04-17 09:00 | BH.SGPN.GN ---
Behaviors/Verbalizations/Mental Status: [] Client alert and oriented, casually dressed and groomed. Eye contact good. Motor activity appropriate. Speech within normal limits. Affect constricted, mood euthymic. Thoughts linear, logical, no signs of hallucinations or delusions. Reviewed client?s symptom tracker, no risk for suicidal ideation, plan, or intent as of 04/17/25 Client Response/Progress/Benefit: [] Client responded well to group by actively participating and offering feedback throughout group. Reported that her emotion is present. Client discussed that it has been stressful moving out and that it has been taking time to do it all. Client shared that it will be 1 year since her cousin's suicide in a couple days. Client expressed frustration with her family not acknowledging it and trying to avoid talking about it. Client shared that she is trying to keep her mood up and has found decorating for [place] as helpful. Client seemed to benefit from feedback from group members and gave multiple suggestions for other group members as they spoke. Client will continue IOP tx to increase coping skills, reduce irritability, and increase overall functioning. Narrative Note: []
--- NOTE | 2025-04-17 10:40 | BH.MDN ---
Multi-Disciplinary Note Note 60-min Individual: Time Started:: 10:45 Date: 04/17/25 Purpose of session/treatment goals addressed:: Purpose of session was to address tx plan goal #2 obj #1 & #2 Eye Contact:: Good Motor Activity:: Appropriate Appearance:: Casual Speech:: Appropriate Mood:: Anxious Affect:: Congruent Thoughts:: Linear, Logical and No evidence of hallucinations/delusions noted Staff Interventions:: thought challenging, CBT techniques, discharge planning, strengths perspective and goal setting Client Response:: Pt receptive of session, actively contributing throughout. Reports she is continuing to adjust to her recent break-up and has moved a majority of things to her mother?s house. Expressed trying to work on coping with her ongoing resentment and disappointment in her ex for not following-through with the agreement that her would work. Noted thoughts of ?it wasn?t supposed to be this way? and shared that she and her outpatient therapist worked to create an ?ick list? or list of reasons why she ended the relationship to read when struggling with doubt. Pt shared that she and her ex have been able to interact without conflict while co-parenting. Plans to invite him to her family Thanksgiving as well, so that her daughter can see them interact in positive ways even if . Pt described feeling her daughter has been watching her and somehow is aware of the change in the relationship, despite pt not explaining this to her yet. Did well to identify ways she is trying to normalize the change and ?make it as fun as possible?. Reports struggling some with anxiety surrounding the likelihood she will have to return to work and worries that she is not physically or emotionally ready to do so. Pt expressed ?I want to set a good example for Marjorie and I know the only way out is through?. Pt reports she has not followed through with resource referrals such as the [email or web address] program. Did work with therapist to identify what is in her control to begin working on physically and mentally to prepare herself for a possible return to work. Pt disclosed she has not been attending doctor?s appointments or caring for her physical health as she ?should?. Identified small goals of setting an alarm to remind herself to hydrate, taking her propranolol, wearing her compression socks, and scheduling follow-up appointments with her medical specialists. Risks/Concerns:: Pt denies SI, plan, or intent as of this date 04/17/25 Progress Toward Goals/Plan:: Progress noted. Pt continues to report taking steps to adjust to the change in her relationship status and challenge thoughts of returning to the unhealthy dynamics. Reports use of distress tolerance skills, opposite action, and reaching out to supports. Pt does continue to struggle with consistency of follow-through, catastrophizing, and negative self-talk at times. Pt reports some mood swings when thinking about the relationship. Pt additionally noted that she has been making progress with self-care and would like to more intentionally focus on her physical health needs to feel strong enough physically to return to work. Progress in being 3 days sober from marijuana use as well. Pt recommended continued IOP tx to maintain gains, improve mood stability and skill application consistency, as well as prevent decompensation. Time Stopped:: 11:50
--- NOTE | 2025-04-19 09:00 | BH.SGPN.GN ---
Behaviors/Verbalizations/Mental Status: []Pt alert and oriented, casually dressed and groomed. Eye contact good. Motor activity appropriate. Speech within normal limits. Affect congruent, mood hyper. Thoughts linear, logical, no signs of hallucinations or delusions. Reviewed pt?s symptom tracker, no risk for suicidal ideation, plan, or intent 04/19/25. Client Response/Progress/Benefit: []Pt was an active participant in group discussions. Attentive. Able to identify mental health wins including being sober from marijuana for 6 days and getting things packed and ready to move. Pt's stressor today is ?it?s been one year since my cousin killed himself.? Pt stated that when she thinks about it, it just makes her angry, so she tries to avoid it. The group offered pt suggests managing this stressor and emotional support which pt reported was helpful. Pt is feeling ?angry and hyper? this morning. Pt receptive to feedback from peers. Benefited from group support, encouragement, and feedback. Progress noted. Will continue IOP tx to promote mood stability, increase use of healthy coping skills, and improve daily functioning. ??? Narrative Note: []
--- NOTE | 2025-04-19 10:10 | BH.SGPN.GN ---
Behaviors/Verbalizations/Mental Status: [] Eye contact is good. Motor activity is appropriate. Appearance is casual. Speech is Appropriate. Mood is euthymic. Affect is full. Thoughts are linear and logical. No evidence of psychosis. Client Response/Progress/Benefit: [] Pt responded well to session, attentive and engaged. Group participated in the discussion defining stigma as well as the stigma associated with mental health. Interactive discussion on common themes associated with mental health stigma which included being crazy, dramatic, lazy, attention-seeking, fake, broken, weak, or stupid. Pt worked with peers to begin discussion of what reinforces stigma, both socially and internally, and this was discussed further in the next group. Pt appeared to benefit from learning about the different types of stigma as well as gaining awareness of how stigma has personally impacted pt. Will continue in IOP to prevent decompensation, increase healthy coping, and improve functioning. Narrative Note: []
--- NOTE | 2025-04-19 11:10 | BH.SGPN.GN ---
Behaviors/Verbalizations/Mental Status: []Pt alert and oriented, casually dressed and groomed. Eye contact fair. Motor activity appropriate. Speech within normal limits. Affect congruent, mood euthymic. Thoughts linear, logical, no signs of hallucinations or delusions. Client Response/Progress/Benefit: [] Pt engaged participant AEB participating in the activity, providing input during small group discussion, and listening attentively to others. Pt appeared to connect with discussion in the benefits of addressing mental health stigma which included: improved relationships, increased willingness to seek help, increased happiness, and improved confidence. Group brainstormed strategies to combat social and perceived stigma. Pt shared one thing pt can do to combat stigma is to decrease use of joking about mental health. Appeared to benefit from increasing awareness of strategies to combat stigma. Pt is to continue IOP to increase consistent use of healthy coping skills, challenge negative thoughts, and prevent decompensation.
--- NOTE | 2025-05-09 11:55 | BH.COMM ---
Communication Note Communication with Client Communication Note: Behaviors/Verbalizations/Mental Status: [] Pt alert and oriented, Casually dressed and groomed. Eye contact good. Motor activity appropriate. Speech within normal limits. Affect congruent, mood calm. Thoughts linear, logical, no signs of hallucinations or delusions. Reviewed pt?s symptom tracker today, denies suicidal ideation, plan, and intent.04/14/25 Client Response/Progress/Benefit: []Pt was an active participant in group discussions. Attentive. Per patients daily symptom tracker, pt indicates a 2/5 for depression and a 1/5 for anxiety, with 5 being severe. Pt's first mental health win was showing up for group today despite wanting to stay home. Her other mental health positive was that she plans to stop smoking marijuana today, as she has run out. Pt stated that she is very nervous for this, and did not have a plan for accountability, however she knows that it is better for her to stop. Pt's stressor was breaking up with her partner. Pt stated that she feels she cannot rely on her partner to provide for her and their child. Pt made the choice to move back in with her parents while looking for a job. Pt was supportive and attentive to others in the group. Pt seemed to benefit from support from peers. Will continue IOP tx to promote healthy coping mechanisms, decrease negative thinking patterns, and prevent decompensation.
== END 2025-04-23 23:59 ==
LOC: BHIOP 08:34
PROVIDERS: PCP Nurse Practitioner Family; Referring Provider Student in an Organized Health Care Education/Training Program; Visit Provider Student in an Organized Health Care Education/Training Program
DX: F42.9 Obsessive-compulsive disorder, unspecified (principal); F32.9 Major depressive disorder, single episode, unspecified
CPT/HCPCS: H2012; H2020; S9480; 90834; 90837; 90853

== ENCOUNTER 2025-04-24 08:04 | Outpatient (RCR) | payer MEDICAID, SELFPAY ==
--- NOTE | 2025-04-26 09:00 | BH.SGPN.GN ---
Behaviors/Verbalizations/Mental Status: [] Pt alert and oriented, Casually dressed and groomed. Eye contact good. Motor activity appropriate. Speech within normal limits. Affect congruent, mood calm. Thoughts linear, logical, no signs of hallucinations or delusions. Reviewed pt?s symptom tracker today, denies suicidal ideation, plan, and intent.04/26/25 Client Response/Progress/Benefit: []Pt was an active participant in group discussions. Attentive. Per patients daily symptom tracker, pt indicates a 2/5 for depression and a 1/5 for anxiety, with 5 being severe. Pt's mental health positive was finishing moving her and her daughter into her mothers house after from her partner. Pt stated that this was a difficult move, especially once she realized that her cat had peed on many of her belongings after she packed them. Pt's other mental health positive was showing up fro group despite being tired from moving the past couple of days. Pt's stressor is dealing financially with her and her ex-partners bills which are all in her name. Pt reported having to pay rent despite not currently living in the apartment, and having to pay her partners phone bill. Pt stated that she is frustrated that she is responsible for this, due to her partner not having a job. Pt did set a boundary with her ex-partner about driving him to work once he gets a job. Pt was supportive and attentive to others in the group. Pt seemed to benefit from support from peers. Will continue IOP tx to promote healthy coping mechanisms, decrease negative thinking patterns, and prevent decompensation.
--- NOTE | 2025-04-26 11:10 | BH.SGPN.GN ---
Behaviors/Verbalizations/Mental Status: []Eye contact is good. Motor activity is appropriate. Appearance is casual. Speech is Appropriate. Mood is euthymic. Affect is congruent. Thoughts are linear and logical. No evidence of psychosis. Client Response/Progress/Benefit: [] Pt was an active participant and responded well to session AEB input and examples during group activity. Group discussed and practiced methods of reframing cognitive distortions. Pt participated in identifying cognitive distortions when examples were provided. Pt discussed in group the different strategies to overcome the distortions. Pt identified cognitive distortion they use most often which is jumping to conclusions and pt reports plan to continue working on reframing these thoughts. Pt did well in small group during experiential activity and helped group identify answers. Will continue tx to reinforce healthy coping skills, improve self-confidence, and maintain sobriety from marijuana. Narrative Note: []
--- NOTE | 2025-04-28 09:59 | BH.DS_ITS ---
Discharge Summary Demographics Date of Admission:: 03/01/25 Discharge Date: 04/28/25 Presenting Problems at Admission:: Pt is a 19 year old female who has a history of depression, anxiety, BPD and OCD who was referred to [facility] tx by her boyfriend who found the program online. At the time of her referral pt reports she was experiencing severe depressive sx which she described as ?bed rot?. Pt noted that she was not able to get off the couch, shower, eat, or do more than the b are minimum due to loss of energy and motivation. Does describe this as somewhat better since beginning IOP tx as it gives her a reason to complete personal hygiene tasks. Noted that she was still caring for her 2 year old daughter at that time but felt guilty for only doing the bare minimum in terms of caregiving tasks. Explained that she had her daughter at 17 and has struggle to adjust to motherhood. Worsening sx of depression mood instability, and OCD since giving . Was previously on venlafaxine and olanzapine but ran out of medication and has not taken for the last 2 weeks. Discharge Diagnoses:: OCD; Major Depressive Disorder Reason for Discharge:: Completed IOP successfully. No longer meets criteria for [facility] level of care. Treatment Progress During Treatment & Response: Client struggled with consistent attendance and would often miss or reschedule 1-2x per week. When in attendance however, pt was attentive and actively engaged. Outcome measures indicate significant clinical improvement, with an overall 44% reduction in symptoms since admission. Domain-specific reductions include: Depression: 75% Anger: 25% Anxiety: 42% Substance Use: 100% The client is medication-compliant and maintains sobriety from cannabis. She self-reports improvements in energy, motivation, and goal driven activities, and continues to engage with her self-care needs. Notably, the client reports active plans to pursue employment, reflecting increased future orientation and goal-directed behavior. She reports improved utilization of coping skills and CBT-based interventions, including cognitive restructuring (thought reframing) and behavioral activation strategies. Issues Still to be Addressed:: Relapse prevention (pt is only a few days sober from cannabis), stress management, distress tolerance, interpersonal effectiveness for co-parenting, and continued work on managing mood. Discharge Recommendations/Instructions:: At present, the patient is planning to continue with outpatient counseling through [facility], as well as psychiatry services through [id number]. Pt reports continued regular outpatient counseling on and is working to schedule with outpatient medication management. She is agreeable to attending aftercare group sessions at [facility] following discharge. Discharge Handout
== END 2025-04-28 11:24 | disposition home or self-care (01) ==
LOC: BHIOP 08:04
PROVIDERS: PCP Nurse Practitioner Family; Referring Provider Student in an Organized Health Care Education/Training Program; Visit Provider Student in an Organized Health Care Education/Training Program
DX: F42.9 Obsessive-compulsive disorder, unspecified (principal); F32.9 Major depressive disorder, single episode, unspecified
CPT/HCPCS: H2020

== ENCOUNTER 2025-05-04 14:22 | Outpatient (RCR) | payer MEDICAID, SELFPAY ==
--- NOTE | 2025-05-04 14:00 | BH.SGPN.GN ---
Behaviors/Verbalizations/Mental Status: []Pt alert and oriented, neatly dressed and groomed. Eye contact good. Motor activity appropriate. Speech within normal limits. Affect constricted-tearful, mood depressed. Thoughts linear, logical, no signs of hallucinations or delusions. Client Response/Progress/Benefit: [] Pt responded well to session, completed their self-reflection worksheet. Pt noted that she is struggling today because she found out her friend in a car accident. ?Pt stated she wanted to isolate today, but she benefits from being in the group setting and getting support from peers. Peers were encouraging and offered emotional support which pt stated was ?so sweet, thank you.? Will continue aftercare to promote mood stability and reinforce healthy coping skills.? Narrative Note: []
--- NOTE | 2025-05-04 14:30 | BH.COMM ---
Communication Note Communication with Client Communication Note: Patient completed IOP and presents today to start relapse prevention group which meets once weekly (1.5 hours) for 8 weeks. Case discussed with Dr. Day with plan to admit with dx of F33.2
== END 2025-05-24 23:59 ==
LOC: BHOG 14:22
PROVIDERS: PCP Nurse Practitioner Family; Referring Provider Student in an Organized Health Care Education/Training Program; Visit Provider Student in an Organized Health Care Education/Training Program
DX: F33.2 Major depressive disorder, recurrent severe without psychotic features (principal)
CPT/HCPCS: 90853